=== PATIENT | female | born 1990 | race African-American/Black ===

== ENCOUNTER 2016-05-21 02:12 | Inpatient (IN) | payer SELFPAY ==
[2016-05-21] MEDS ORDERED: PANTOPRAZOLE SODIUM 40 MG VIAL IV ONE (02:50)
[2016-05-21] MEDS ORDERED: NORMAL SALINE 1000 ML 1,000 ML IV ONE ×3 (02:50→10:30)
--- NOTE | 2016-05-21 02:52 | ER Document Report ---
ED General - General Mode of Arrival: Medic Information source: Emergency Med Personnel TRAVEL OUTSIDE OF THE [place] IN LAST 30 DAYS: No - HPI Patient complains to provider of: Altered Mental Status Onset: Just prior to arrival Associated symptoms: Other - see above <YOLANDA RIZVI - Last Filed: 05/21/16 03:39> <SUNITAARUN VIOLETA - Last Filed: 05/21/16 05:36> - General Chief Complaint: Altered Mental Status Stated Complaint: ALTERED MENTAL STATUS Notes: 26 year old female presents to the ED via EMS in an altered mental status just prior to arrival. EMS reports that the patient's family said that the patient was in an altered mental status yesterday and locked herself in her room yesterday. Family also reports that the patient has had episodes of urinary and fecal incontinence. EMS states that the patient was found initially unresponsive , but responded to a hard sternal rub. Patient denies drinking alcohol tonight. (YOLANDA RIZVI) - Related Data Allergies/Adverse Reactions: lisinopril [Lisinopril] Adverse Reaction (Severe, Verified 04/20/16 09:28) hypotension (5 mg dose) Past Medical History - General Information source: [facility] Records - Social History Smoking Status: Unknown if Ever Smoked Family History: Reviewed & Not Pertinent, Hyperlipidemia, Hypertension - Past Medical History Cardiac Medical History: Reports: Hx Hypertension Endocrine Medical History: Reports: Hx Diabetes Mellitus Type 1 - hx of DKA GI Medical History: Reports: Hx Gastroesophageal Reflux Disease Psychiatric Medical History: Reports: Hx Bipolar Disorder, Hx Depression Past Surgical History: Reports: Hx Bowel Surgery - Patient states for holding her stomach - Immunizations Immunizations up to date: No Hx Diphtheria, Pertussis, Tetanus Vaccination: Yes Hx Pneumococcal Vaccination: 05/09/12 <YOLANDA RIZVI - Last Filed: 05/21/16 03:39> Review of Systems - Review of Systems -: Yes ROS unobtainable due to patient's medical condition Constitutional: No symptoms reported EENT: No symptoms reported Cardiovascular: No symptoms reported Respiratory: No symptoms reported Gastrointestinal: See HPI, Fecal incontinence Genitourinary: See HPI, Incontinence Female Genitourinary: No symptoms reported Musculoskeletal: No symptoms reported Skin: No symptoms reported Hematologic/Lymphatic: No symptoms reported Neurological/Psychological: See HPI, Other - altered mental status <YOLANDA RIZVI - Last Filed: 05/21/16 03:39> <ARUN DORSEY - Last Filed: 05/21/16 05:36> - Review of Systems Notes: A comprehensive ROS is unobtainable secondary to the patient's status. (RIZVI YOLANDA) Physical Exam - Vital signs Interpretation: Tachycardic - General General appearance: Alert - but uncooperative, Other - actively vomiting In distress: None - HEENT Head: Normocephalic, Atraumatic Eyes: Normal Extraocular movements intact: Yes Pupils: PERRL Mucous membranes: Dry - Respiratory Respiratory status: No respiratory distress Breath sounds: Normal - Cardiovascular Rhythm: Regular, Tachycardia Heart sounds: Normal auscultation - Abdominal Inspection: Normal - Back Back: Normal - Extremities General upper extremity: Normal inspection, Normal ROM General lower extremity: Normal inspection, Normal ROM, Other - Patient is wearing a depend. - Neurological Neuro grossly intact: Yes Traver Coma Scale Eye Opening: Spontaneous Dona Coma Scale Verbal: Oriented Dona Coma Scale Motor: Localizes to Pain Traver Coma Scale Total: 14 - Psychological Associated symptoms: Normal affect, Normal mood - Skin Skin Temperature: Warm Skin Moisture: Dry Skin Color: Normal <YOLANDA RIZVI - Last Filed: 05/21/16 03:39> Course - Laboratory Result Diagrams: 05/21/16 02:58 05/21/16 02:58 <YOLANDA RIZVI - Last Filed: 05/21/16 03:39> - Laboratory Result Diagrams: 05/21/16 02:58 05/21/16 02:58 <ARUN DORSEY - Last Filed: 05/21/16 05:36> - Re-evaluation Re-evalutation: 05/21/16 05:22 Patient is a 26-year-old female who comes in with vomiting. Patient has coffee- ground emesis. Hemoglobin is stable. Patient was initially somewhat tachycardic. There is resolving with fluids. Patient has an acute renal insufficiency today. Potassium is normal. Patient is positive for ketones although this is likely dehydration. Patient's initial glucose was 98. Repeat is 2:30. Patient will be given a dose of insulin. Patient will need to be admitted for her coffee-ground emesis and acute renal insufficiency today for fluid hydration. Patient also has what appears to be a UTI again. Patient was recently treated for Escherichia coli UTI. Will be started on Rocephin. Blood and urine cultures have been sent. Strongly recommend port placement on this patient as she is a very difficult stick. (ARUN DORSEY) - Laboratory Laboratory results interpreted by me: 05/21/16 05/21/16 05/21/16 02:58 02:58 02:58 WBC 15.0 H MCH 26.7 L RDW 15.5 H Seg Neutrophils % 86.2 H Lymphocytes % 11.2 L Monocytes % 2.1 L Absolute Neutrophils 12.9 H Sodium 148.7 H Chloride 96 L Anion Gap 30 H BUN 47 H Creatinine 2.81 H Est GFR ( Amer) 25 L Est GFR (Non-Af Amer) 21 L Glucose 143 H POC Glucose Lactic Acid 2.2 H Calcium 10.9 H AST 54 H Alkaline Phosphatase 197 H Total Protein 11.0 H Albumin 5.2 H Urine Protein Urine Glucose (UA) Urine Ketones Urine Blood Ur Leukocyte Esterase 05/21/16 05/21/16 03:30 04:12 WBC MCH RDW Seg Neutrophils % Lymphocytes % Monocytes % Absolute Neutrophils Sodium Chloride Anion Gap BUN Creatinine Est GFR ( Amer) Est GFR (Non-Af Amer) Glucose POC Glucose 230 H Lactic Acid Calcium AST Alkaline Phosphatase Total Protein Albumin Urine Protein 30 H Urine Glucose (UA) >=500 H Urine Ketones 80 H Urine Blood SMALL H Ur Leukocyte Esterase SMALL H (ARUN DORSEY) Discharge <YOLANDA RIZVI - Last Filed: 05/21/16 03:39> - Discharge Admitting Provider: Hospitalist Unit Admitted: IMCU <ARUN DORSEY - Last Filed: 05/21/16 05:36> - Discharge Clinical Impression: Coffee ground emesis, Dehydration, Polysubstance abuse UTI (urinary tract infection) Qualifiers: Urinary tract infection type: site unspecified Hematuria presence: without hematuria Qualified Code(s): N39.0 - Urinary tract infection, site not specified Acute renal failure Qualifiers: Acute renal failure type: unspecified Qualified Code(s): N17.9 - Acute kidney failure, unspecified Condition: Stable Disposition: ADMITTED INPATIENT Scribe Attestation: 05/21/16 05:36 I personally performed the services described in the documentation, reviewed and edited the documentation which was dictated to the scribe in my presence, and it accurately records my words and actions. (ARUN DORSEY
[2016-05-21] MEDS ORDERED: ONDANSETRON HCL INJ/PF 4 MG/2 ML SDV IV ONE (03:08)
[2016-05-21 03:28] LABS: ABSOLUTE BASOPHILS # (AUTO) 0.1 10^3/uL (0.0-0.2); ABSOLUTE LYMPHOCYTES (AUTO) 1.7 10^3/uL (0.5-4.7); ABSOLUTE MONOCYTES (AUTO) 0.3 10^3/uL (0.1-1.4); ABSOLUTE NEUT (AUTO) 12.9 10^3/uL (1.7-8.2); BASOPHILS % (AUTO) 0.4 % (0-2); EOSINOPHILS % (AUTO) 0.1 % (0-6); HEMATOCRIT 42.8 % (36.0-47.0); HEMOGLOBIN 13.8 g/dL (12.0-15.5); HGB HCT DIFFERENCE -1.4; LYMPHOCYTES % (AUTO) 11.2 % (13-45); MEAN CORPUSCULAR HEMOGLOBIN 26.7 pg (27.0-33.4); MEAN CORPUSCULAR HGB CONC 32.2 g/dL (32.0-36.0); MEAN CORPUSCULAR VOLUME 83 fl (80-97); MONOCYTES % (AUTO) 2.1 % (3-13); RED BLOOD COUNT 5.16 10^6/uL (3.72-5.28); RED CELL DISTRIBUTION WIDTH 15.5 % (11.5-14.0); SEGMENTED NEUTROPHILS % (AUTO) 86.2 % (42-78)
[2016-05-21 03:45] LABS: ALANINE AMINOTRANSFERASE 18 U/L (9-52); ALBUMIN 5.2 g/dL (3.5-5.0); ALKALINE PHOSPHATASE 197 U/L (38-126); ASPARTATE AMINO TRANSFERASE 54 U/L (14-36); BLOOD UREA NITROGEN 47 mg/dL (7-20); CALCIUM 10.9 mg/dL (8.4-10.2); CARBON DIOXIDE 23 mmol/L (22-30); CHLORIDE 96 mmol/L (98-107); CREATININE RESULT 2.81 mg/dL (0.52-1.25); GLUCOSE 143 mg/dL (75-110); POTASSIUM 4.9 mmol/L (3.6-5.0); SODIUM 148.7 mmol/L (137-145)
[2016-05-21 04:09] LABS: ANION GAP 30 (5-19)
[2016-05-21 04:22] LABS: VENOUS BLOOD BASE EXCESS -0.5 mmol/L; VENOUS BLOOD HCO3 24.7 mmol/L (20-32); VENOUS BLOOD PCO2 42.7 mmHg (35-63); VENOUS BLOOD PH 7.38 (7.30-7.42)
[2016-05-21 04:50] LABS: APPEARANCE,URINE SLIGHTLY-CLOUDY; BILIRUBIN,URINE NEGATIVE (NEGATIVE); GLUCOSE, URINE >=500 mg/dL (NEGATIVE); KETONES,URINE 80 mg/dL (NEGATIVE); LEUKOCYTE ESTERASE,URINE SMALL (NEGATIVE); NITRITE,URINE NEGATIVE (NEGATIVE); PROTEIN,URINE 30 mg/dL (NEGATIVE); URINE SPECIFIC GRAVITY 1.013; UROBILINOGEN,URINE NEGATIVE mg/dL (<2.0)
[2016-05-21 05:03] LABS: URINE BARBITURATES SCREEN NEGATIVE; URINE METHADONE SCREEN NEGATIVE; URINE PHENCYCLIDINE SCREEN NEGATIVE
[2016-05-21] MEDS ORDERED: INSULIN REG, HUMAN 100 UNIT/ML 3 ML VIAL (PYX) IV ONE ×2 (05:21→12:15)
[2016-05-21] MEDS ORDERED: CEFTRIAXONE 1 GM/D5W RTU 50 ML IV ONE (05:22)
[2016-05-21] MEDS ORDERED: INSULIN LISPRO 100 UNIT/ML 3 ML VIAL SUBCUT PRN (06:58)
[2016-05-21] MEDS ORDERED: DEXTROSE 50%-WATER 25 GM/50 ML DISP.SYRIN IV PRN ×4 (06:58→09:50)
[2016-05-21] MEDS ORDERED: GLUCAGON,HUMAN RECOMB 1 MG INJ IM PRN ×2 (06:58→09:50)
[2016-05-21] MEDS ORDERED: DEXTROSE 40% GEL 15 GM TUBE PO PRN ×4 (06:58→09:50)
[2016-05-21] MEDS ORDERED: 1/2 NORMAL SALINE 1,000 ML IV PRN (06:59)
[2016-05-21 07:10] LABS: PROTHROMBIN TIME 12.8 SEC (11.4-15.4)
[2016-05-21] MEDS ORDERED: ACETAMINOPHEN 650 MG SUPP.RECT PR PRN (07:35)
[2016-05-21 07:38] LABS: BLOOD UREA NITROGEN 48 mg/dL (7-20); CARBON DIOXIDE 18 mmol/L (22-30); CHLORIDE 93 mmol/L (98-107); CREATININE RESULT 3.12 mg/dL (0.52-1.25); GLUCOSE 393 mg/dL (75-110); SODIUM 147.5 mmol/L (137-145)
[2016-05-21 07:41] LABS: ANION GAP 37 (5-19)
[2016-05-21] MEDS ORDERED: NORMAL SALINE 100 ML with INSULIN REGULAR, HUMAN 100 UNIT IV PRN ×2 (09:50)
--- NOTE | 2016-05-21 10:02 | PDOC H&P ---
History of Present Illness Admission Date/PCP: 05/21/16 05:54 Patient complains of: ams History of Present Illness: JACKIE GARCIA is a 26 year old female, well known to the hospitalist service for multiple admissions for diabetic ketoacidosis, typically due to noncompliance. Positive cocaine drug screen on multiple occasions. Transported to the emergency room via EMS for evaluation of above complaint. Patient has been discussed with emergency room physician who evaluated the patient. Patient only mumbles incoherently, does not interact with ER staff or examiner, and is able to provide no history whatsoever in terms of acute or chronic events, review of systems, personal habits, family history, etc. No friends or family are present. Old inpatient records are reviewed.. Per emergency room physician report, EMS stated family said the patient had exhibited altered mental status approximately 24 hours ago and had locked her self in her room at that time. Has been having episodes of urinary and fecal incontinence lately. EMS reported patient was initially found unresponsive, but did respond to hard sternal rub. Patient denied drinking alcohol the night of admission to the emergency room physician. No further information available this point in time. Laboratory results are listed in [email or web address] and are reviewed. X-ray summary results are listed below, with full report(s) reviewed. . EKG reviewed . Social history/personal habits: Per old records, single, no children. Unemployed. Rare alcohol use. Occasional tobacco use. Multiple drug screens positive for cocaine. Allergies/adverse reactions are listed in [email or web address] and are reviewed. Home medications Home medications initially autopopulated into [employer] may not accurately reflect patient's true medications, dosages, and/or frequencies. Order has been entered for staff to contact family, outpatient physician, and/ or pharmacy to more accurately determine medications, dosages, and frequencies and to contact physician when that has been accomplished. REVIEW OF SYSTEMS: See history and present illness. No further information available this point in time. PHYSICAL EXAMINATION: 5 feet 4 inches tall. 56.7 kg. BMI 21.5 kg/m. Pulse 120 and regular. Blood pressure 138/85. Respirations are 22 and unlabored. 99% saturation on room air. Temperature 99.4. Thin otherwise well-developed though somewhat disheveled, chronically ill- appearing -[place] female who appears a bit older than her stated age. Looking about the room slightly, but basically does not interact with ER staff or examiner. Maintaining airway well. Occasional moaning. Skin is warm and dry. No grossly obvious evidence of rash in areas of skin examined. No subcutaneous nodules palpated. ENT: Hearing can't be evaluated adequately due to her current status. No Naranjo sign. Palpation of cranium fails to reveal any obvious evidence of injury or instability. Eyes: No scleral icterus. Pupils equal and reactive to light at 4 mm. [place] conjunctivae. No raccoon eyes. Neck is nontender to palpation. Midline trachea. No palpable thyroid nodule mass enlargement or tenderness. Lymphatic: No palpable cervical or clavicular nodes. Neck and lymphatic exams limited by patient body habitus. Psychiatric: Can't be adequately evaluated due to her current status. Lungs: Auscultation reveals clear and equal breath sounds bilaterally. No use of accessory respiratory muscles. Cardiovascular: Heart regular rate and rhythm, without gallop murmur or rub. No carotid or abdominal aortic bruits. No ankle or pedal edema. Faintly palpable dorsalis pedis pulses. Abdomen: soft, slightly, distended nontender with positive bowel sounds. Unable to adequately evaluate abdomen for masses or organomegaly due to distention. Extremities: Hands and Feet are warm and dry. No calf tenderness to compression. No grossly obvious visual evidence of calf swelling. Gentle manipulation of upper and lower extremities fails to reveal any obvious evidence of injury or instability to involved major joints. Neurologic: Moves all 4 extremities grossly normally. No rigidity. Patellar reflexes absent. Absent Babinski. Light touch can't be adequately evaluated due to her current status.. Past Medical History Cardiac Medical History: Reports: Hypertension Endocrine Medical History: Reports: Diabetes Mellitus Type 1 - hx of DKA GI Medical History: Reports: Gastroesophageal Reflux Disease Psychiatric Medical History: Reports: Bipolar Disorder, Depression Hematology: Reports: Anemia - Of chronic disease Past Surgical History Past Surgical History: Reports: None Social History Information Source: Emergency Med Personnel, [facility] Records Smoking Status: Unknown if Ever Smoked Frequency of Alcohol Use: None Hx Recreational Drug Use: Yes Drugs: Cocaine Hx Prescription Drug Abuse: Yes - Advance Directive Resuscitation Status: Full Code Surrogate healthcare decision maker:: In the past has been her mother Family History Family History: Reviewed & Not Pertinent, Hyperlipidemia, Hypertension Parental Family History Reviewed: Yes - per old records Children Family History Reviewed: NA Sibling(s) Family History Reviewed.: Yes Medication/Allergy Home Medications: No Home Medications 05/21/16 Allergies/Adverse Reactions: lisinopril [Lisinopril] Adverse Reaction (Severe, Verified 04/20/16 09:28) hypotension (5 mg dose) Physical Exam Vital Signs: Temp Pulse Resp BP Pulse Ox 99.7 F 10 L 120/77 99 05/21/16 03:15 05/21/16 05:01 05/21/16 05:01 05/21/16 05:01 Results Impressions: Chest X-Ray 05/21/16 00:00 IMPRESSION: NO ACUTE RADIOGRAPHIC FINDING IN THE CHEST. Assessment & Plan - Diagnosis (1) ARF (acute renal failure) Qualifiers: Acute renal failure type: unspecified Qualified Code(s): N17.9 - Acute kidney failure, unspecified Is this a current diagnosis for this admission?: YesPlan: Likely prerenal in origin. IV fluids. Renal ultrasound. Follow-up chemistry. (2) Acute encephalopathy Is this a current diagnosis for this admission?: YesPlan: Likely multifactorial, including cocaine use, along with an element of dehydration, combined with suspected urinary tract infection. Hopefully will clear with time and treatment. Knee high SCDs for DVT prophylaxis, along with subcutaneous heparin. Time spent in evaluation and management of patient: 55 minutes. (3) Coffee ground emesis Is this a current diagnosis for this admission?: YesPlan: IV Protonix. Follow-up CBC with differential. (4) Dehydration with hypernatremia Is this a current diagnosis for this admission?: YesPlan: IV fluids. Follow-up chemistry. (5) Hyperproteinemia Is this a current diagnosis for this admission?: YesPlan: Follow-up chemistry. (6) UTI (urinary tract infection) Qualifiers: Urinary tract infection type: site unspecified Hematuria presence: with hematuria Qualified Code(s): N39.0 - Urinary tract infection, site not specified Is this a current diagnosis for this admission?: YesPlan: 05/02/2016 urine culture reviewed. We'll continue Rocephin. (7) Cocaine abuse Is this a current diagnosis for this admission?: Yes (8) DVT prophylaxis Is this a current diagnosis for this admission?: Yes - Inpatient Certification Based on my medical assessment, after consideration of the patient's comorbidities, presenting symptoms, or acuity I expect that the services needed warrant INPATIENT care.: Yes I certify that my determination is in accordance with my understanding of Medicare's requirements for reasonable and necessary INPATIENT services [42 CFR 412.3e].: Yes Medical Necessity: Need Close Monitoring Due to Risk of Patient Decompensation, Need For IV Fluids, Need For Continuous Telemetry Monitoring, Need for IV Antibiotics, Risk of Complication if Not Cared For in Hospital, Risk of Diagnosis Which Will Require Inpatient Eval/Care/Monitoring Post Hospital Care: D/C or Transfer Summary
[2016-05-21] MEDS ORDERED: LIDOCAINE 2% INJ-PF (100 MG/5 ML) SYRINGE ONE (10:17)
[2016-05-21] MEDS ORDERED: LIDOCAINE 2% INJ (20 MG/ML) 20 ML MDV INJ ONE (10:17)
[2016-05-21] MEDS: PANTOPRAZOLE SODIUM 40 MG VIAL IV SCH ×2 (11:43→22:04)
[2016-05-21] MEDS: HEPARIN SOD (PORCINE) 5,000 UNIT/ML 1 ML SYRINGE SUBCUT SCH ×2 (11:44→22:19)
[2016-05-21] MEDS: NORMAL SALINE 1000 ML 1,000 ML IV PRN ×2 (11:47→16:01)
[2016-05-21] MEDS ORDERED: INSULIN REG, HUMAN 100 UNIT/ML 3 ML VIAL (PYX) ONE (12:13)
--- NOTE | 2016-05-21 12:58 | OPERATIVE REPORT E ---
Operative Report NAME: JACKIE GARCIA : 1990 AGE: 26Y DATE OF SURGERY: 05/21/2016 ROOM: ED07 PREOPERATIVE DIAGNOSIS: Need for central venous access to treat diabetic ketoacidosis. POSTOPERATIVE DIAGNOSIS: Need for central venous access to treat diabetic ketoacidosis. OPERATION: Insertion of right internal jugular vein triple lumen catheter. SURGEON: DELPHINE ORDONEZ M.D. ANESTHESIA: Local. REPLACEMENT: None. COMPLICATIONS: None. CONDITION: Stable. PROCEDURE: Patient comes in with DKA. Patient is a frequent visitor to this Emergency Room for treatment for her DKA. Central venous access has been requested. The patient was put in the Trendelenburg position, and the right neck was prepped and draped in the usual sterile manner. A time-out was achieved, and then the right neck was prepped and draped in the usual sterile manner. The patient was on cardiac monitoring. Local anesthesia was injected in the middle of the right anterior triangle of the neck and advanced toward the nipple in order to anesthetize the skin and underlying subcutaneous tissue. Venous blood was noted in the syringe, the syringe was disconnected, and the needle was left in place. The access needle was then passed through the syringe, and the right internal jugular vein was accessed percutaneously. With the flash of venous blood in the syringe, the syringe was removed, and the guidewire was advanced through the needle into the superior vena cava. Patient was noted to have a small amount of ectopy. The wire was brought back, and the ectopy disappeared. The needle was then removed then a vein dilator was placed over the guidewire. After removal of the vein dilator, and using the sterile Seldinger technique, the triple lumen catheter was advanced over the guidewire, as the guidewire was removed, and the catheter was advanced to the 20-cm sandra. There was good antegrade and retrograde flow through each lumen, and the catheter was secured into position. The BIOPATCH and Tegaderm was attached, and portable chest x-ray has been requested. Good breath sounds were noted in the right hemithorax. The patient tolerated the procedure well and will be admitted to the floor at some time today. DICTATING PHYSICIAN: DELPHINE ORDONEZ M.D. [id number] PHY#: [id number] ID: [id number] JOB#: [id number] ACCT: [id number] cc:DELPHINE ORDONEZ M.D. >
[2016-05-21 14:10] LABS: BLOOD UREA NITROGEN 45 mg/dL (7-20); CALCIUM 8.3 mg/dL (8.4-10.2); CARBON DIOXIDE 12 mmol/L (22-30); CREATININE RESULT 2.56 mg/dL (0.52-1.25)
[2016-05-21 14:22] LABS: CHLORIDE 102 mmol/L (98-107); SODIUM 145.2 mmol/L (137-145)
[2016-05-21 14:27] LABS: ANION GAP 31 (5-19)
[2016-05-21 14:30] LABS: GLUCOSE 411 mg/dL (75-110)
--- NOTE | 2016-05-21 14:57 | EKG REPORT ---
SEVERITY:- OTHERWISE NORMAL ECG - SINUS TACHYCARDIA : Confirmed by: Gissel Dinero 21-May-2016 14:56:49
--- NOTE | 2016-05-21 17:40 | PDOC PROGRESS REPORT ---
Subjective Progress Note for:: 05/21/16 Subjective:: The patient is currently lying in bed. Patient is awake and actually push me away from her during assessment. The patient does seem combative. No reported episodes of vomiting nor diarrhea. The patient has remained afebrile. Blood pressures have improved. The patient voices no other concerns at this time. Currently on insulin drip. Physical Exam Vital Signs: Temp Pulse Resp BP Pulse Ox 98.9 F 116 H 16 149/91 H 100 05/21/16 15:07 05/21/16 15:07 05/21/16 15:07 05/21/16 15:07 05/21/16 15:07 Intake & Output 05/19/16 05/20/16 05/21/16 23:59 23:59 23:59 Output Total 1100 Balance -1100 General appearance: PRESENT: no acute distress, disheveled, thin, well-nourished Head exam: PRESENT: atraumatic, normocephalic Eye exam: PRESENT: conjunctiva pink, EOMI, PERRLA. ABSENT: scleral icterus Ear exam: PRESENT: normal external ear exam Mouth exam: PRESENT: moist, tongue midline Neck exam: ABSENT: carotid bruit, JVD, lymphadenopathy, thyromegaly Respiratory exam: PRESENT: clear to auscultation [place]. ABSENT: rales, rhonchi, wheezes Cardiovascular exam: PRESENT: RRR. ABSENT: diastolic murmur, rubs, systolic murmur Pulses: PRESENT: normal dorsalis pedis pul Vascular exam: PRESENT: normal capillary refill GI/Abdominal exam: PRESENT: normal bowel sounds, soft. ABSENT: distended, guarding, mass, organolmegaly, rebound, tenderness Rectal exam: PRESENT: deferred Extremities exam: PRESENT: full ROM. ABSENT: calf tenderness, clubbing, pedal edema Neurological exam: PRESENT: alert, altered, awake, CN II-XII grossly intact. ABSENT: motor sensory deficit Psychiatric exam: PRESENT: agitated, unusual affect. ABSENT: homicidal ideation , suicidal ideation Skin exam: PRESENT: dry, intact, warm. ABSENT: cyanosis, rash Results Laboratory Results: 05/21/16 13:38 05/21/16 05/21/16 05/21/16 08:50 08:50 13:38 Sodium 145.2 H Potassium 4.0 Chloride 102 Carbon Dioxide 12 L Anion Gap 31 H BUN 45 H Creatinine 2.56 H Est GFR ( Amer) 28 L Est GFR (Non-Af Amer) 23 L Glucose 411 H* Lactic Acid 2.0 Calcium 8.3 L Ammonia < 8.7 L Impressions: Renal Ultrasound 05/21/16 00:00 IMPRESSION: No hydronephrosis. Normal size kidneys bilaterally. Dependent debris in the bladder, correlate clinically for cystitis or hematuria Chest X-Ray 05/21/16 11:23 IMPRESSION: Right central line tip in the right atrium. No pneumothorax. Assessment & Plan - Diagnosis (1) Diabetic ketoacidosis Qualifiers: Diabetes mellitus type: type 1 Diabetes mellitus complication detail: with coma Qualified Code(s): E10.11 - Type 1 diabetes mellitus with ketoacidosis with coma Is this a current diagnosis for this admission?: YesPlan: Diabetic ketoacidosis protocol was utilized including an insulin drip, every hourly blood glucose checks and aggressive hydration. Slowly improving will address IV fluids once the patient's glucoses less than 250. 04/20/16 05/21/16 05/21/16 08:03 03:30 06:44 Potassium 5.7 H Carbon Dioxide Anion Gap 37 H POC Glucose Urine Ketones 80 H 05/21/16 05/21/16 11:26 13:38 Potassium Carbon Dioxide 12 L Anion Gap POC Glucose 543 H* Urine Ketones (2) ARF (acute renal failure) Qualifiers: Acute renal failure type: unspecified Qualified Code(s): N17.9 - Acute kidney failure, unspecified Is this a current diagnosis for this admission?: YesPlan: Continue to aggressively hydrate (3) Acute encephalopathy Is this a current diagnosis for this admission?: YesPlan: Is likely secondary to #1. The patient has presented like this before when in DKA. (4) Dehydration with hypernatremia Is this a current diagnosis for this admission?: YesPlan: Hydration (5) Hyperproteinemia Is this a current diagnosis for this admission?: Yes (6) Gastroparesis Is this a current diagnosis for this admission?: Yes (7) Polysubstance abuse Is this a current diagnosis for this admission?: Yes (8) UTI (urinary tract infection) Qualifiers: Urinary tract infection type: site unspecified Hematuria presence: with hematuria Qualified Code(s): N39.0 - Urinary tract infection, site not specified Is this a current diagnosis for this admission?: YesPlan: Continue antibiotic coverage 05/21/16 03:30 Urine Culture - Pending Catheterized Urine (9) SIRS (systemic inflammatory response syndrome) Is this a current diagnosis for this admission?: Yes (10) Cocaine abuse Is this a current diagnosis for this admission?: Yes (11) Acute on chronic anemia Is this a current diagnosis for this admission?: No (12) Hypertension Qualifiers: Hypertension type: other secondary hypertension Qualified Code(s): I15.8 - Other secondary hypertension (13) Iron deficiency anemia due to dietary causes Is this a current diagnosis for this admission?: Yes (14) Noncompliance Is this a current diagnosis for this admission?: Yes (15) DVT prophylaxis Is this a current diagnosis for this admission?: Yes - Time Time Spent with patient: on this visit including assessment, plan, physical examination, family meeting, and specialty collaboration, and patient education is 60 minutes. Time Spent with patient: 35 or more minutes Medications reviewed and adjusted accordingly: Yes Anticipated discharge: Home Within: within 48 hours Disposition: The patient is a full code. Pending patient's symptomatology and diagnostic findings will reevaluate in the a.m.
[2016-05-21 18:30] LABS: BLOOD UREA NITROGEN 41 mg/dL (7-20); CALCIUM 8.2 mg/dL (8.4-10.2); CHLORIDE 105 mmol/L (98-107); CREATININE RESULT 1.97 mg/dL (0.52-1.25); GLUCOSE 177 mg/dL (75-110); POTASSIUM 4.1 mmol/L (3.6-5.0); SODIUM 145.3 mmol/L (137-145)
[2016-05-21 18:54] LABS: ANION GAP 19 (5-19)
[2016-05-21 19:02] LABS: CARBON DIOXIDE 21 mmol/L (22-30)
[2016-05-21] MEDS: DEXTROSE 5%-1/2 NORMAL SALINE 1,000 ML IV PRN ×2 (20:31→23:30)
[2016-05-21 23:02] LABS: ANION GAP 12 (5-19); BLOOD UREA NITROGEN 33 mg/dL (7-20); CALCIUM 7.6 mg/dL (8.4-10.2); CARBON DIOXIDE 26 mmol/L (22-30); CHLORIDE 107 mmol/L (98-107); CREATININE RESULT 1.54 mg/dL (0.52-1.25); GLUCOSE 79 mg/dL (75-110); POTASSIUM 3.4 mmol/L (3.6-5.0); SODIUM 145.3 mmol/L (137-145)
[2016-05-22] MEDS ORDERED: POTASSI CL 20 MEQ/50 ML RIDER 50 ML IV ONE (00:35)
[2016-05-22 00:41] LABS: ADD ON TESTING BLD IN LAB ACKNOWLEDGE
[2016-05-22 00:54] LABS: MAGNESIUM 1.7 mg/dL (1.6-2.3)
[2016-05-22] MEDS: POTASSI CL 20 MEQ/D5-1/2NS 1L 1,000 ML IV PRN ×3 (01:20→09:02)
[2016-05-22 02:58] LABS: ANION GAP 14 (5-19); BLOOD UREA NITROGEN 26 mg/dL (7-20); CALCIUM 7.5 mg/dL (8.4-10.2); CARBON DIOXIDE 23 mmol/L (22-30); CHLORIDE 105 mmol/L (98-107); CREATININE RESULT 1.29 mg/dL (0.52-1.25); GLUCOSE 236 mg/dL (75-110); POTASSIUM 3.9 mmol/L (3.6-5.0); SODIUM 142.1 mmol/L (137-145)
[2016-05-22 07:14] LABS: ALANINE AMINOTRANSFERASE 18 U/L (9-52); ALBUMIN 3.2 g/dL (3.5-5.0); ALKALINE PHOSPHATASE 101 U/L (38-126); ANION GAP 9 (5-19); ASPARTATE AMINO TRANSFERASE 17 U/L (14-36); BILIRUBIN,TOTAL 0.4 mg/dL (0.2-1.3); BLOOD UREA NITROGEN 21 mg/dL (7-20); CALCIUM 7.7 mg/dL (8.4-10.2); CARBON DIOXIDE 25 mmol/L (22-30); CHLORIDE 107 mmol/L (98-107); CREATININE RESULT 1.06 mg/dL (0.52-1.25); GLUCOSE 129 mg/dL (75-110); POTASSIUM 3.7 mmol/L (3.6-5.0); SODIUM 141.3 mmol/L (137-145); TOTAL PROTEIN 6.3 g/dL (6.3-8.2)
[2016-05-22 07:15] LABS: ABSOLUTE LYMPHOCYTES (AUTO) 1.6 10^3/uL (0.5-4.7); ABSOLUTE MONOCYTES (AUTO) 0.9 10^3/uL (0.1-1.4); ABSOLUTE NEUT (AUTO) 9.9 10^3/uL (1.7-8.2); BASOPHILS % (AUTO) 0.1 % (0-2); EOSINOPHILS % (AUTO) 0.1 % (0-6); HEMATOCRIT 25.6 % (36.0-47.0); HGB HCT DIFFERENCE -0.4; LYMPHOCYTES % (AUTO) 12.6 % (13-45); MEAN CORPUSCULAR HEMOGLOBIN 27.2 pg (27.0-33.4); MEAN CORPUSCULAR HGB CONC 32.6 g/dL (32.0-36.0); MEAN CORPUSCULAR VOLUME 83 fl (80-97); MONOCYTES % (AUTO) 7.4 % (3-13); RED BLOOD COUNT 3.07 10^6/uL (3.72-5.28); RED CELL DISTRIBUTION WIDTH 15.6 % (11.5-14.0); SEGMENTED NEUTROPHILS % (AUTO) 79.8 % (42-78); WHITE BLOOD COUNT 12.4 10^3/uL (4.0-10.5)
[2016-05-22 07:22] LABS: HEMOGLOBIN 8.4 g/dL (12.0-15.5)
[2016-05-22] MEDS: CEFTRIAXONE 1 GM/D5W RTU 50 ML IV SCH (08:53)
[2016-05-22] MEDS: PANTOPRAZOLE SODIUM 40 MG VIAL IV SCH (08:53)
[2016-05-22] MEDS: HEPARIN SOD (PORCINE) 5,000 UNIT/ML 1 ML SYRINGE SUBCUT SCH ×2 (08:54→21:56)
[2016-05-22] MEDS ORDERED: VANCOMYCIN HCL 0 MG in DEXTROSE 5%-WATER 250 ML IV NR (09:30)
[2016-05-22] MEDS ORDERED: GLUCAGON,HUMAN RECOMB 1 MG INJ IM PRN (09:33)
[2016-05-22] MEDS ORDERED: DEXTROSE 50%-WATER 25 GM/50 ML DISP.SYRIN IV PRN ×2 (09:33)
[2016-05-22] MEDS ORDERED: DEXTROSE 40% GEL 15 GM TUBE PO PRN ×2 (09:33)
--- NOTE | 2016-05-22 09:41 | PDOC PROGRESS REPORT ---
Subjective Progress Note for:: 05/22/16 Subjective:: The patient is currently lying in bed. Patient is awake and actually push me away from her during assessment. The patient states her shoulder is hurting from the IV as well as her neck. The patient does seem easily agitated. No reported episodes of vomiting nor diarrhea. The patient has remained afebrile. Blood pressures have improved. The patient voices no other concerns at this time. Physical Exam Vital Signs: Temp Pulse Resp BP Pulse Ox 97.3 F 103 H 22 H 133/90 H 100 05/22/16 08:06 05/22/16 08:06 05/22/16 08:06 05/22/16 08:06 05/22/16 08:06 Intake & Output 05/20/16 05/21/16 05/22/16 23:59 23:59 23:59 Intake Total 1256 3500 Output Total 2600 1100 Balance -1344 2400 Weight 60.5 kg General appearance: PRESENT: no acute distress, disheveled, thin, well-nourished Head exam: PRESENT: atraumatic, normocephalic Eye exam: PRESENT: conjunctiva pink, EOMI, PERRLA. ABSENT: scleral icterus Ear exam: PRESENT: normal external ear exam Mouth exam: PRESENT: moist, tongue midline Neck exam: ABSENT: carotid bruit, JVD, lymphadenopathy, thyromegaly Respiratory exam: PRESENT: clear to auscultation [place]. ABSENT: rales, rhonchi, wheezes Cardiovascular exam: PRESENT: RRR. ABSENT: diastolic murmur, rubs, systolic murmur Pulses: PRESENT: normal dorsalis pedis pul Vascular exam: PRESENT: normal capillary refill GI/Abdominal exam: PRESENT: normal bowel sounds, soft. ABSENT: distended, guarding, mass, organolmegaly, rebound, tenderness Rectal exam: PRESENT: deferred Extremities exam: PRESENT: full ROM. ABSENT: calf tenderness, clubbing, pedal edema Neurological exam: PRESENT: alert, altered, awake, CN II-XII grossly intact. ABSENT: motor sensory deficit Psychiatric exam: PRESENT: agitated, unusual affect. ABSENT: homicidal ideation , suicidal ideation Skin exam: PRESENT: dry, intact, warm. ABSENT: cyanosis, rash Results Laboratory Results: 05/22/16 06:11 05/22/16 06:11 05/21/16 05/21/16 05/21/16 08:50 13:38 17:55 WBC RBC Hgb Hct MCV MCH MCHC RDW Plt Count Seg Neutrophils % Lymphocytes % Monocytes % Eosinophils % Basophils % Absolute Neutrophils Absolute Lymphocytes Absolute Monocytes Absolute Eosinophils Absolute Basophils Sodium 145.2 H 145.3 H Potassium 4.0 4.1 Chloride 102 105 Carbon Dioxide 12 L 21 L Anion Gap 31 H 19 BUN 45 H 41 H Creatinine 2.56 H 1.97 H Est GFR ( Amer) 28 L 38 L Est GFR (Non-Af Amer) 23 L 31 L Glucose 411 H* 177 H Lactic Acid 2.0 Calcium 8.3 L 8.2 L Magnesium Total Bilirubin AST ALT Alkaline Phosphatase Total Protein Albumin 05/21/16 05/21/16 05/22/16 22:00 22:00 02:25 WBC RBC Hgb Hct MCV MCH MCHC RDW Plt Count Seg Neutrophils % Lymphocytes % Monocytes % Eosinophils % Basophils % Absolute Neutrophils Absolute Lymphocytes Absolute Monocytes Absolute Eosinophils Absolute Basophils Sodium 145.3 H 142.1 Potassium 3.4 L 3.9 Chloride 107 105 Carbon Dioxide 26 23 Anion Gap 12 14 BUN 33 H 26 H Creatinine 1.54 H 1.29 H Est GFR ( Amer) 50 L > 60 Est GFR (Non-Af Amer) 41 L 51 L Glucose 79 236 H Lactic Acid Calcium 7.6 L 7.5 L Magnesium 1.7 Total Bilirubin AST ALT Alkaline Phosphatase Total Protein Albumin 05/22/16 05/22/16 06:11 06:11 WBC 12.4 H RBC 3.07 L Hgb 8.4 L D Hct 25.6 L MCV 83 MCH 27.2 MCHC 32.6 RDW 15.6 H Plt Count 240 Seg Neutrophils % 79.8 H Lymphocytes % 12.6 L Monocytes % 7.4 Eosinophils % 0.1 Basophils % 0.1 Absolute Neutrophils 9.9 H Absolute Lymphocytes 1.6 Absolute Monocytes 0.9 Absolute Eosinophils 0.0 Absolute Basophils 0.0 Sodium 141.3 Potassium 3.7 Chloride 107 Carbon Dioxide 25 Anion Gap 9 BUN 21 H Creatinine 1.06 Est GFR ( Amer) > 60 Est GFR (Non-Af Amer) > 60 Glucose 129 H Lactic Acid Calcium 7.7 L Magnesium Total Bilirubin 0.4 AST 17 ALT 18 Alkaline Phosphatase 101 Total Protein 6.3 Albumin 3.2 L Impressions: Renal Ultrasound 05/21/16 00:00 IMPRESSION: No hydronephrosis. Normal size kidneys bilaterally. Dependent debris in the bladder, correlate clinically for cystitis or hematuria Chest X-Ray 05/21/16 11:23 IMPRESSION: Right central line tip in the right atrium. No pneumothorax. Assessment & Plan - Diagnosis (1) Diabetic ketoacidosis Qualifiers: Diabetes mellitus type: type 1 Diabetes mellitus complication detail: with coma Qualified Code(s): E10.11 - Type 1 diabetes mellitus with ketoacidosis with coma Is this a current diagnosis for this admission?: YesPlan: Diabetic ketoacidosis protocol was utilized including an insulin drip, every hourly blood glucose checks and aggressive hydration. will transition to SQ Levamir and AC&HS coverage 04/20/16 05/21/16 05/21/16 08:03 03:30 06:44 Potassium 5.7 H Carbon Dioxide Anion Gap 37 H POC Glucose Urine Ketones 80 H 05/21/16 05/21/16 11:26 13:38 Potassium Carbon Dioxide 12 L Anion Gap POC Glucose 543 H* Urine Ketones (2) ARF (acute renal failure) Qualifiers: Acute renal failure type: unspecified Qualified Code(s): N17.9 - Acute kidney failure, unspecified Is this a current diagnosis for this admission?: YesPlan: Resolved (3) Acute encephalopathy Is this a current diagnosis for this admission?: YesPlan: Is likely secondary to #1. The patient has presented like this before when in DKA. Improved. (4) Dehydration with hypernatremia Is this a current diagnosis for this admission?: YesPlan: Hydration (5) Hyperproteinemia Is this a current diagnosis for this admission?: Yes (6) Gastroparesis Is this a current diagnosis for this admission?: Yes (7) Polysubstance abuse Is this a current diagnosis for this admission?: Yes (8) UTI (urinary tract infection) Qualifiers: Urinary tract infection type: site unspecified Hematuria presence: with hematuria Qualified Code(s): N39.0 - Urinary tract infection, site not specified Is this a current diagnosis for this admission?: YesPlan: Continue antibiotic coverage 05/21/16 03:30 Urine Culture - Pending Catheterized Urine (9) SIRS (systemic inflammatory response syndrome) Is this a current diagnosis for this admission?: YesPlan: It appears on set of blood cultures in positive. Will await urine culture and repeat blood cultures in the am. Add Vanc (10) Cocaine abuse Is this a current diagnosis for this admission?: Yes (11) Hypertension Qualifiers: Hypertension type: other secondary hypertension Qualified Code(s): I15.8 - Other secondary hypertension (12) Iron deficiency anemia due to dietary causes Is this a current diagnosis for this admission?: YesPlan: Will repeat CBC in am (13) Noncompliance Is this a current diagnosis for this admission?: Yes (14) DVT prophylaxis Is this a current diagnosis for this admission?: Yes - Time Time Spent with patient: 25-34 minutes Medications reviewed and adjusted accordingly: Yes Anticipated discharge: Home Within: within 48 hours
[2016-05-22] MEDS: TRAMADOL HCL 50 MG TABLET PO PRN (10:14)
[2016-05-22] MEDS: INSULIN DETEMIR 100 UNIT/ML 3 ML PEN SUBCUT SCH ×2 (11:08→21:57)
[2016-05-22] MEDS ORDERED: VANCOMYCIN HCL 750 MG in DEXTROSE 5%-WATER 250 ML IV ONE (11:15)
[2016-05-22] MEDS: INSULIN LISPRO 100 UNIT/ML 3 ML VIAL SUBCUT PRN (13:17)
[2016-05-22] MEDS: LANSOPRAZOLE 30 MG TAB.RAP.DR PO SCH (17:06)
[2016-05-22] MEDS: VANCOMYCIN HCL 750 MG in DEXTROSE 5%-WATER 250 ML IV SCH (21:56)
[2016-05-23] MEDS: TRAMADOL HCL 50 MG TABLET PO PRN ×2 (04:45→20:18)
[2016-05-23] MEDS: LANSOPRAZOLE 30 MG TAB.RAP.DR PO SCH ×2 (06:00→18:14)
[2016-05-23] MEDS: INSULIN LISPRO 100 UNIT/ML 3 ML VIAL SUBCUT PRN ×2 (07:58→12:31)
[2016-05-23] MEDS: HEPARIN SOD (PORCINE) 5,000 UNIT/ML 1 ML SYRINGE SUBCUT SCH ×2 (10:35→21:47)
[2016-05-23] MEDS: INSULIN DETEMIR 100 UNIT/ML 3 ML PEN SUBCUT SCH ×2 (10:35→21:47)
[2016-05-23] MEDS: VANCOMYCIN HCL 750 MG in DEXTROSE 5%-WATER 250 ML IV SCH (10:36)
[2016-05-23] MEDS: CEFTRIAXONE 1 GM/D5W RTU 50 ML IV SCH (10:36)
--- NOTE | 2016-05-23 14:39 | PDOC PROGRESS REPORT ---
Subjective Progress Note for:: 05/23/16 Subjective:: The patient is currently lying in bed. The patient is much more awake and alert than she was yesterday. The patient has agreed to go to drug rehabilitation. The patient denies any nausea, vomiting, diarrhea, shortness of breath, dizziness, chest pain, heart palpitations, fevers, or chills. The patient has remained afebrile. Blood pressures have been in a good range. The patient voices no other concerns at this time. Review of systems: The rest of the review of systems is negative. Physical Exam Vital Signs: Temp Pulse Resp BP Pulse Ox 98.2 F 92 16 147/101 H 100 05/23/16 07:34 05/23/16 07:34 05/23/16 07:34 05/23/16 07:34 05/23/16 07:34 Intake & Output 05/21/16 05/22/16 05/23/16 23:59 23:59 23:59 Intake Total 1256 4512 350 Output Total 2600 1550 1300 Balance -1344 2962 -950 Weight 60.5 kg 57.8 kg General appearance: PRESENT: no acute distress, cooperative, well-developed, well-nourished Head exam: PRESENT: atraumatic, normocephalic Eye exam: PRESENT: conjunctiva pink, EOMI, PERRLA. ABSENT: scleral icterus Ear exam: PRESENT: normal external ear exam Mouth exam: PRESENT: moist, tongue midline Neck exam: ABSENT: carotid bruit, JVD, lymphadenopathy, thyromegaly Respiratory exam: PRESENT: clear to auscultation [place], symmetrical, unlabored. ABSENT: rales, rhonchi, tachypnea, wheezes Cardiovascular exam: PRESENT: RRR. ABSENT: diastolic murmur, rubs, systolic murmur Pulses: PRESENT: normal dorsalis pedis pul Vascular exam: PRESENT: normal capillary refill GI/Abdominal exam: PRESENT: normal bowel sounds, soft. ABSENT: distended, guarding, mass, organolmegaly, rebound, tenderness Rectal exam: PRESENT: deferred Extremities exam: PRESENT: full ROM. ABSENT: calf tenderness, clubbing, pedal edema Neurological exam: PRESENT: alert, awake, oriented to person, oriented to place , oriented to time, oriented to situation, CN II-XII grossly intact. ABSENT: motor sensory deficit Psychiatric exam: PRESENT: appropriate affect, normal mood. ABSENT: homicidal ideation, suicidal ideation Skin exam: PRESENT: dry, intact, warm. ABSENT: cyanosis, rash Results Laboratory Results: 05/22/16 06:11 05/22/16 06:11 Impressions: Renal Ultrasound 05/21/16 00:00 IMPRESSION: No hydronephrosis. Normal size kidneys bilaterally. Dependent debris in the bladder, correlate clinically for cystitis or hematuria Chest X-Ray 05/21/16 11:23 IMPRESSION: Right central line tip in the right atrium. No pneumothorax. Assessment & Plan - Diagnosis (1) UTI (urinary tract infection) Qualifiers: Urinary tract infection type: site unspecified Hematuria presence: with hematuria Qualified Code(s): N39.0 - Urinary tract infection, site not specified Is this a current diagnosis for this admission?: YesPlan: Continue antibiotic coverage. It appears that the patient has had Escherichia coli in the past that is resistant to meri quinolones. Given the patient's recurrence of pyelonephritis and uncompleted treatment regimens in addition and noncompliance will continue IV Rocephin for now (2) Diabetic ketoacidosis Qualifiers: Diabetes mellitus type: type 1 Diabetes mellitus complication detail: with coma Qualified Code(s): E10.11 - Type 1 diabetes mellitus with ketoacidosis with coma Is this a current diagnosis for this admission?: YesPlan: Has done well with transition to Levamir and AC&HS coverage 04/20/16 05/21/16 05/21/16 08:03 03:30 06:44 Potassium 5.7 H Carbon Dioxide Anion Gap 37 H POC Glucose Urine Ketones 80 H 05/21/16 05/21/16 11:26 13:38 Potassium Carbon Dioxide 12 L Anion Gap POC Glucose 543 H* Urine Ketones (3) SIRS (systemic inflammatory response syndrome) Is this a current diagnosis for this admission?: YesPlan: It secondary to the above this is resolved (4) ARF (acute renal failure) Qualifiers: Acute renal failure type: unspecified Qualified Code(s): N17.9 - Acute kidney failure, unspecified Is this a current diagnosis for this admission?: YesPlan: Resolved (5) Acute encephalopathy Is this a current diagnosis for this admission?: YesPlan: Is likely secondary to #1. The patient has presented like this before when in DKA. Improved. (6) Dehydration with hypernatremia Is this a current diagnosis for this admission?: YesPlan: Hydration (7) Hyperproteinemia Is this a current diagnosis for this admission?: Yes (8) Gastroparesis Is this a current diagnosis for this admission?: Yes (9) Polysubstance abuse Is this a current diagnosis for this admission?: Yes (10) Cocaine abuse Is this a current diagnosis for this admission?: YesPlan: Edi Cullen, brand director had managed to arrange drug rehab for the patient; however, she was admitted before she could get there. She has agreed to go again. I am uncertain of the details but Subhash gave me the above contact information for him. (11) Hypertension Qualifiers: Hypertension type: other secondary hypertension Qualified Code(s): I15.8 - Other secondary hypertension (12) Iron deficiency anemia due to dietary causes Is this a current diagnosis for this admission?: YesPlan: Will repeat CBC in am (13) Noncompliance Is this a current diagnosis for this admission?: Yes (14) DVT prophylaxis Is this a current diagnosis for this admission?: Yes - Time Time Spent with patient: on this visit including assessment, plan, physical examination, and patient education is 25 minutes. Time Spent with patient: 25-34 minutes Medications reviewed and adjusted accordingly: Yes Anticipated discharge: Acute Rehab Within: when bed available Disposition: The patient is a full code. Pending patient's symptomatology and diagnostic findings will reevaluate in the a.m. the patient can be downgraded to a medical bed.
[2016-05-24] MEDS: LANSOPRAZOLE 30 MG TAB.RAP.DR PO SCH (05:25)
[2016-05-24 06:11] LABS: HEMATOCRIT 29.9 % (36.0-47.0); HEMOGLOBIN 9.6 g/dL (12.0-15.5); HGB HCT DIFFERENCE -1.1; MEAN CORPUSCULAR VOLUME 85 fl (80-97); RED BLOOD COUNT 3.54 10^6/uL (3.72-5.28); RED CELL DISTRIBUTION WIDTH 15.6 % (11.5-14.0); WHITE BLOOD COUNT 4.4 10^3/uL (4.0-10.5)
[2016-05-24 06:36] LABS: ANION GAP 9 (5-19); BLOOD UREA NITROGEN 11 mg/dL (7-20); CARBON DIOXIDE 28 mmol/L (22-30); CHLORIDE 100 mmol/L (98-107); CREATININE RESULT 0.81 mg/dL (0.52-1.25); GLUCOSE 209 mg/dL (75-110); MAGNESIUM 1.8 mg/dL (1.6-2.3); POTASSIUM 4.2 mmol/L (3.6-5.0); SODIUM 136.7 mmol/L (137-145)
[2016-05-24] MEDS: INSULIN LISPRO 100 UNIT/ML 3 ML VIAL SUBCUT PRN ×2 (08:27→12:20)
[2016-05-24] MEDS: HEPARIN SOD (PORCINE) 5,000 UNIT/ML 1 ML SYRINGE SUBCUT SCH (09:37)
[2016-05-24] MEDS: INSULIN DETEMIR 100 UNIT/ML 3 ML PEN SUBCUT SCH (09:37)
[2016-05-24] MEDS: CEFTRIAXONE 1 GM/D5W RTU 50 ML IV SCH (09:38)
[2016-05-24] MEDS ORDERED: METOCLOPRAMIDE HCL ORAL SOLN 10 MG/10 ML UDCUP PO ONE (10:30)
[2016-05-24] MEDS ORDERED: MAG HYDROX/AL HYDROX/SIMETH SUSP 30 ML UDCUP PO ONE (10:30)
[2016-05-24] MEDS ORDERED: LIDOCAINE 2% VISCOUS SOLN 20 ML UDCUP PO ONE (10:30)
[2016-05-24 13:07] VITALS: BP 132/95
[2016-05-24] MEDS ORDERED: BISACODYL 10 MG SUPP.RECT PR PRN (13:22)
[2016-05-24] MEDS ORDERED: HYDROXYZINE PAMOATE 25 MG CAPSULE PO PRN ×2 (13:39→14:38)
--- NOTE | 2016-05-24 15:44 | PDOC PROGRESS REPORT ---
Subjective Progress Note for:: 05/24/16 Subjective:: The patient was seen earlier today on rounds. The patient denies any nausea, vomiting, diarrhea, shortness of breath, dizziness, chest pain, heart palpitations, fevers, or chills. Patient states that her shoulder pain persist but her neck pain has resolved. The patient has remained afebrile. Blood pressures have been in a good range. When prompted the patient voices no other concerns at this time. During my rounds of once again reiterated to the patient that I would keep her in-house to receive 5 days of IV antibiotics given her disruptive and intermittent use of oral antibiotics for treatment of UTI there is concern for development of resistance and palate. I have discussed this with the patient every day that I have rounded however each time I see the patient she perceives this to be new information. I was notified by nursing staff around noon that the patient was threatening to leave AGAINST MEDICAL ADVICE. The patient demanded to see me at the bedside at that time however I was unable to present immediately. I notified emergency member services representative Ms. Lainez and the patient was indeed attempting to leave AGAINST MEDICAL ADVICE. The patient had previously agreed to stay in the hospital until a rehabilitation bed to be arranged. EMS has worked diligently to get the patient into rehabilitation given the volume of calls and interventions that the patient requires. Apparently ED semiconductor processor as well as Ms. Lainez visited the patient and was able to talk the patient into staying. However the patient once again requested me at the bedside. I have asked Ms. Lainez what the patient wanted and she stated the patient wanted to know the plan. I communicated the known plan to Ms. Lainez to reiterate to the patient. I was not a position to go to the patient's bedside to discuss social matters. According to nursing staff the patient has requested something for anxiety. The patient states that she can take Vistaril. Review of systems: The rest of the review of systems is negative. Physical Exam Vital Signs: Temp Pulse Resp BP Pulse Ox 98.5 F 93 14 132/95 H 100 05/24/16 11:39 05/24/16 11:39 05/24/16 11:39 05/24/16 11:39 05/24/16 11:39 Intake & Output 05/22/16 05/23/16 05/24/16 23:59 23:59 23:59 Intake Total 5092 2124 1063 Output Total 1550 1999 1999 Balance 2962 124 -937 Weight 60.5 kg 57.8 kg 56.9 kg General appearance: PRESENT: no acute distress, cooperative, well-developed, well-nourished Head exam: PRESENT: atraumatic, normocephalic Eye exam: PRESENT: conjunctiva pink, EOMI, PERRLA. ABSENT: scleral icterus Ear exam: PRESENT: normal external ear exam Mouth exam: PRESENT: moist, tongue midline Neck exam: ABSENT: carotid bruit, JVD, lymphadenopathy, thyromegaly Respiratory exam: PRESENT: clear to auscultation [place], symmetrical, unlabored. ABSENT: rales, rhonchi, tachypnea, wheezes Cardiovascular exam: PRESENT: RRR. ABSENT: diastolic murmur, rubs, systolic murmur Pulses: PRESENT: normal dorsalis pedis pul Vascular exam: PRESENT: normal capillary refill GI/Abdominal exam: PRESENT: normal bowel sounds, soft. ABSENT: distended, guarding, mass, organolmegaly, rebound, tenderness Rectal exam: PRESENT: deferred Extremities exam: PRESENT: full ROM. ABSENT: calf tenderness, clubbing, pedal edema Neurological exam: PRESENT: alert, awake, oriented to person, oriented to place , oriented to time, oriented to situation, CN II-XII grossly intact. ABSENT: motor sensory deficit Psychiatric exam: PRESENT: appropriate affect, normal mood. ABSENT: homicidal ideation, suicidal ideation Skin exam: PRESENT: dry, intact, warm. ABSENT: cyanosis, rash Results Laboratory Results: 05/24/16 05:16 05/24/16 05:16 05/24/16 05/24/16 05:16 05:16 WBC 4.4 RBC 3.54 L Hgb 9.6 L Hct 29.9 L MCV 85 MCH 27.0 MCHC 32.0 RDW 15.6 H Plt Count 250 Sodium 136.7 L Potassium 4.2 Chloride 100 Carbon Dioxide 28 Anion Gap 9 BUN 11 Creatinine 0.81 Est GFR ( Amer) > 60 Est GFR (Non-Af Amer) > 60 Glucose 209 H Calcium 9.0 Magnesium 1.8 Impressions: Renal Ultrasound 05/21/16 00:00 IMPRESSION: No hydronephrosis. Normal size kidneys bilaterally. Dependent debris in the bladder, correlate clinically for cystitis or hematuria Chest X-Ray 05/21/16 11:23 IMPRESSION: Right central line tip in the right atrium. No pneumothorax. Assessment & Plan - Diagnosis (1) UTI (urinary tract infection) Qualifiers: Urinary tract infection type: site unspecified Hematuria presence: with hematuria Qualified Code(s): N39.0 - Urinary tract infection, site not specified Is this a current diagnosis for this admission?: YesPlan: The patient only had a colony of 4000. The patient has had Escherichia coli that is resistant to meri quinolones in the recent past. A she has responded very well to Rocephin. I have agreed for the patient received 5 days of IV Rocephin in an effort keep the patient in-house until a rehabilitation bed is found. (2) Diabetic ketoacidosis Qualifiers: Diabetes mellitus type: type 1 Diabetes mellitus complication detail: with coma Qualified Code(s): E10.11 - Type 1 diabetes mellitus with ketoacidosis with coma Is this a current diagnosis for this admission?: YesPlan: This alone could explain the patient's symptoms. Apparently the patient has partied excessively in the past month. Does not have to be an infectious process this could be the source of the patient's problems. (3) SIRS (systemic inflammatory response syndrome) Is this a current diagnosis for this admission?: YesPlan: It secondary to the above this is resolved (4) ARF (acute renal failure) Qualifiers: Acute renal failure type: unspecified Qualified Code(s): N17.9 - Acute kidney failure, unspecified Is this a current diagnosis for this admission?: YesPlan: Resolved (5) Acute encephalopathy Is this a current diagnosis for this admission?: YesPlan: Is likely secondary to #1. The patient has presented like this before when in DKA. Improved. (6) Dehydration with hypernatremia Is this a current diagnosis for this admission?: YesPlan: Hydration (7) Hyperproteinemia Is this a current diagnosis for this admission?: Yes (8) Gastroparesis Is this a current diagnosis for this admission?: Yes (9) Polysubstance abuse Is this a current diagnosis for this admission?: Yes (10) Cocaine abuse Is this a current diagnosis for this admission?: YesPlan: Edi Cullen, bobbin cleaner hand and Ms. Lainez [phone] had managed to arrange drug rehab for the patient; however, she was admitted before she could get there. She has agreed to go again. I am uncertain of the details but Cullen gave me the above contact information for him. (11) Hypertension Qualifiers: Hypertension type: other secondary hypertension Qualified Code(s): I15.8 - Other secondary hypertension (12) Iron deficiency anemia due to dietary causes Is this a current diagnosis for this admission?: YesPlan: Will repeat CBC in am (13) Noncompliance Is this a current diagnosis for this admission?: Yes (14) DVT prophylaxis Is this a current diagnosis for this admission?: Yes - Time Time Spent with patient: on this visit including assessment, plan, physical examination, resource alignment and patient education is 35 minutes. Time Spent with patient: 35 or more minutes Medications reviewed and adjusted accordingly: Yes Anticipated discharge: Acute Rehab Within: when bed available Disposition: The patient is a full code. Pending patient's symptomatology and diagnostic findings will reevaluate in the a.m.
--- NOTE | 2016-05-24 17:23 | DISCHARGE SUMMARY E ---
Discharge Summary NAME: JACKIE GARCIA : 1990 AGE: 26Y ADMITTED: 05/21/2016 DISCHARGED: 05/24/2016 AGAINST MEDICAL ADVICE SUMMARY CODE STATUS: FULL CODE. PRIMARY CARE PROVIDER: [facility]. WORKING DIAGNOSES AT THE TIME THE PATIENT LEFT AGAINST MEDICAL ADVICE: Includes: 1. Diabetic ketoacidosis. 2. Systemic inflammatory response syndrome secondary to UTI and DKA. 3. Acute renal failure which resolved. 4. Acute encephalopathy. The patient returned to baseline. 5. Dehydration with hypernatremia. 6. Hyperproteinemia. 7. Gastroparesis. 8. Polysubstance abuse. 9. Cocaine abuse. 10. Hypertension. 11. Iron-deficiency anemia due to dietary causes. 12. Noncompliance. HISTORY OF PRESENT ILLNESS: The patient is a 26-year-old -[place] female that is well known to the hospitalist service. The patient was brought to the emergency department via EMS after being noted to have altered mental status. The patient was brought in for exhibiting altered mental status for greater than 24 hours. The patient had apparently locked herself in her room and was having urinary and fecal incontinence. Apparently the patient has been doing this for sometime. According to communication with providers, the patient "parties," and when she comes home she has to be diapered until she "richard up." While in the emergency department the patient had findings that were consistent with DKA, and the patient was referred to the hospitalist for admission and management. HOSPITAL COURSE: The patient was admitted to [facility]. The patient was volume resuscitated and started on an insulin drip. The patient's gap closed, and the patient's chemistries overall improved. The patient's blood cultures: One bottle of one set grew Aerococcus viridans, and the patient's urine culture had a very small colony that was unable to be further grown out. However, the patient responded nicely to Rocephin which she has been sensitive to in the past, and therefore this was continued. During the patient's stay, I had the pleasure of meeting the department coordinator, Edi Cullen, who is attempting to arrange rehab for the patient, and the patient has agreed, given that the patient has had multiple re-admissions and utilizes a great deal of EMS resources. The patient agreed to stay in the hospital until she could go to rehab. However, I explained to the patient that ideally she would complete 5 days of IV antibiotics given her abuse of antibiotics in the past to ensure that there was not any element of pyelonephritis. The patient refused to stay any further. Although I met with the patient on multiple occasions throughout the day during her stay, the patient demanded for me to go at the bedside on the day that she left and troubleshoot things such as anxiety over the phone. The patient received Vistaril for her anxiety; however, she felt that this was not enough and insisted on leaving against medical advice, although the patient had been met with today by the community fan balancer coordinator as well as the mattress spring encaser from emergency department, who I had notified that the patient was going to leave AMA. Even though they attempted to intervene, the patient still insisted on leaving AMA and has elected to do such. Time spent on this AMA summary is 10 minutes. DICTATING PHYSICIAN: DONTE HUTSON NP [id number] PHY#: [id number] ID: [id number] JOB#: [id number] ACCT: [id number] cc:MARK JOYCE M.D. DONTE HUTSON NP >
== END 2016-05-24 16:00 | disposition left against medical advice (07) | DRG 637 ==
LOC: ER 02:12 → EH 05:54 → UNDOADMIN 05:54 → EH 07:35 → 3W 15:00
PROVIDERS: ADMIT Family Medicine; ATTEND Family Medicine
PROC: 02H633Z Insertion of Infusion Device into Right Atrium, Percutaneous Approach (ICD-10-PCS; principal; 2016-05-21)
DX: E10.11 Type 1 diabetes mellitus with ketoacidosis with coma (principal); G93.40 Encephalopathy, unspecified; N39.0 Urinary tract infection, site not specified; N17.9 Acute kidney failure, unspecified; E87.0 Hyperosmolality and hypernatremia; E86.0 Dehydration; E88.09 Other disorders of plasma-protein metabolism, not elsewhere classified; E10.43 Type 1 diabetes mellitus with diabetic autonomic (poly)neuropathy; K31.84 Gastroparesis; I15.8 Other secondary hypertension; D50.9 Iron deficiency anemia, unspecified; F19.10 Other psychoactive substance abuse, uncomplicated; F14.10 Cocaine abuse, uncomplicated; K21.9 Gastro-esophageal reflux disease without esophagitis; F41.9 Anxiety disorder, unspecified; F31.9 Bipolar disorder, unspecified; D63.8 Anemia in other chronic diseases classified elsewhere; B96.20 Unspecified Escherichia coli [E. coli] as the cause of diseases classified elsewhere; Z91.19 Patient's noncompliance with other medical treatment and regimen; Z82.49 Family history of ischemic heart disease and other diseases of the circulatory system; Z88.8 Allergy status to other drugs, medicaments and biological substances
CPT/HCPCS: 36415; 51701; 71010; 76770; 80048; 80053; 80307; 81001; 82140; 82271; 82803; 82962; 83605; 83735; 84703; 85025; 85027; 85610; 87040; 87077; 87086; 93005; 93010; 96361; 96374; 96375; 99285; C1751; J0696; J1644; J1815; J2405; J3370; J3480; J3490; J7030; J7060; S0164

== ENCOUNTER 2016-06-22 06:15 | Emergency (ER) | payer SELFPAY ==
--- NOTE | 2016-06-22 07:26 | ER Document Report ---
ED General - General Chief Complaint: Low Blood Sugar Stated Complaint: BLOOD SUGAR PROBLEMS Mode of Arrival: Medic Information source: Patient Notes: 26-year-old female history of type I diabetes who is extremely noncompliant who presents every few days with either hypoglycemia or hyperglycemia presents today found altered and hypoglycemic. Patient's blood sugar was extremely low on arrival, she was given glucagon and oral glucose and symptoms resolved. Patient herself is awake alert at this time, states she took her sliding scale insulin last night and didn't eat a blood sugar was low TRAVEL OUTSIDE OF THE [place] IN LAST 30 DAYS: No - HPI Onset: Just prior to arrival Onset/Duration: Sudden Quality of pain: No pain Severity: Mild Pain Level: Denies Associated symptoms: Weakness Exacerbated by: Denies Relieved by: Denies Similar symptoms previously: Yes Recently seen / treated by doctor: Yes - Related Data Allergies/Adverse Reactions: lisinopril [Lisinopril] Adverse Reaction (Severe, Verified 04/20/16 09:28) hypotension (5 mg dose) Past Medical History - Social History Smoking Status: Current Every Day Smoker Cigarette use (# per day): Yes Chew tobacco use (# tins/day): No Smoking Education Provided: No Frequency of alcohol use: Occasional Drug Abuse: Cocaine Family History: Reviewed & Not Pertinent, Hyperlipidemia, Hypertension - Past Medical History Cardiac Medical History: Reports: Hx Hypertension Endocrine Medical History: Reports: Hx Diabetes Mellitus Type 1 - hx of DKA GI Medical History: Reports: Hx Gastroesophageal Reflux Disease Psychiatric Medical History: Reports: Hx Bipolar Disorder, Hx Depression Past Surgical History: Reports: Hx Bowel Surgery - Patient states for holding her stomach - Immunizations Immunizations up to date: No Hx Diphtheria, Pertussis, Tetanus Vaccination: Yes Hx Pneumococcal Vaccination: 05/09/12 Review of Systems - Review of Systems Notes: REVIEW OF SYSTEMS: CONSTITUTIONAL : Denies fever, chills, or sweats. Denies recent illness. EENT: Denies eye, ear, throat, or mouth pain or symptoms. Denies nasal or sinus congestion or discharge. Denies throat, tongue, or mouth swelling or difficulty swallowing. CARDIOVASCULAR: Denies chest pain. Denies palpitations or racing or irregular heart beat. Denies ankle edema. RESPIRATORY: Denies cough, cold, or chest congestion. Denies shortness of breath, difficulty breathing, or wheezing. GASTROINTESTINAL: Denies abdominal pain or distention. Denies nausea, vomiting , or diarrhea. Denies blood in vomitus, stools, or per rectum. Denies black, tarry stools. Denies constipation. GENITOURINARY: Denies difficulty urinating, painful urination, burning, frequency, blood in urine, or discharge. FEMALE GENITOURINARY: Denies vaginal bleeding, heavy or abnormal periods, irregular periods. Denies vaginal discharge or odor. MUSCULOSKELETAL: Denies back or neck pain or stiffness. Denies joint pain or swelling. SKIN: Denies rash, lesions or sores. HEMATOLOGIC : Denies easy bruising or bleeding. LYMPHATIC: Denies swollen, enlarged glands. NEUROLOGICAL: Denies confusion or altered mental status. Denies passing out or loss of consciousness. Denies dizziness or lightheadedness. Denies headache. Denies weakness or paralysis or loss of use of either side. Denies problems with gait or speech. Denies sensory loss, numbness, or tingling. Denies seizures. PSYCHIATRIC: Denies anxiety or stress. Denies depression, suicidal ideation, or homicidal ideation. ALL OTHER SYSTEMS REVIEWED AND NEGATIVE. Dictation was performed using beModel voice recognition software PHYSICAL EXAMINATION: GENERAL: Well-appearing, well-nourished and in no acute distress. HEAD: Atraumatic, normocephalic. EYES: Pupils equal round and reactive to light, extraocular movements intact, conjunctiva are normal. ENT: Nares patent, oropharynx clear without exudates. Moist mucous membranes. NECK: Normal range of motion, supple without lymphadenopathy LUNGS: Breath sounds clear to auscultation bilaterally and equal. No wheezes rales or rhonchi. HEART: Regular rate and rhythm without murmurs ABDOMEN: Soft, nontender, nondistended abdomen. No guarding, no rebound. No masses appreciated. Female : deferred Musculoskeletal: Normal range of motion, no pitting or edema. No cyanosis. NEUROLOGICAL: Cranial nerves grossly intact. Normal speech, normal gait. Normal sensory, motor exams PSYCH: Normal mood, normal affect. SKIN: Warm, Dry, normal turgor, no rashes or lesions noted. Physical Exam - Vital signs Vitals: Resp Pulse Ox 13 100 06/22/16 06:31 06/22/16 06:31 Course - Re-evaluation Re-evalutation: 06/22/16 07:31 At this time patient has no complaints blood sugar is noted to be 300 on arrival , is awake. Patient will be discharged at this time does not require any further intervention since symptoms have resolved. I will splint the patient in depth that she will eventually kill herself due to her noncompliance. Patient states she understands. I have instructed her to return at any time if there are any other concerns After performing a Medical Screening Examination, I estimate there is LOW risk for ACUTE CORONARY SYNDROME, RESPIRATORY FAILURE, SEPSIS OR MENINGITIS, thus I consider the discharge disposition reasonable. The patient and I have discussed the diagnosis and risks, and we agree with discharging home with close follow- up. We also discussed returning to the Emergency Department immediately if new or worsening symptoms occur. We have discussed the symptoms which are most concerning (e.g., changing or worsening pain, trouble swallowing or breathing, neck stiffness, fever) that necessitate immediate return. - Vital Signs Vital signs: Temp Pulse Resp BP Pulse Ox 97.5 F 12 147/98 H 100 06/22/16 06:32 06/22/16 06:32 06/22/16 07:01 06/22/16 07:01 - Laboratory Laboratory results interpreted by me: 06/22/16 06:33 POC Glucose 185 H Discharge - Discharge Clinical Impression: Acute encephalopathy, Hypoglycemia Condition: Stable Disposition: HOME, SELF-CARE Instructions: Hypoglycemia ([facility]) Additional Instructions: You cannot allow your blood sugar to drop this is low again, eventually this will cause life-threatening issues Follow up with your physician tomorrow for further care or return to the ED IMMEDIATELY if symptoms worsen or new concerns occur
[2016-06-22 07:40] VITALS: BP 163/113
== END 2016-06-22 07:40 | disposition home or self-care (01) ==
LOC: ER 06:15
DX: E10.649 Type 1 diabetes mellitus with hypoglycemia without coma (principal); Z91.19 Patient's noncompliance with other medical treatment and regimen; G93.40 Encephalopathy, unspecified; R53.1 Weakness; I10 Essential (primary) hypertension; F17.210 Nicotine dependence, cigarettes, uncomplicated
CPT/HCPCS: 82962; 99285

== ENCOUNTER 2016-07-02 00:26 | Emergency (ER) | payer SELFPAY ==
[2016-07-02] MEDS ORDERED: NORMAL SALINE 1000 ML 1,000 ML IV PRN (00:42)
[2016-07-02] MEDS ORDERED: ONDANSETRON HCL INJ/PF 4 MG/2 ML SDV IV ONE (00:42)
--- NOTE | 2016-07-02 00:51 | ER Document Report ---
ED General - General Chief Complaint: Low Blood Sugar Stated Complaint: BLOOD SUGAR PROBLEM Time seen by provider: 00:48 Mode of Arrival: Medic Information source: Patient Notes: 26-year-old female brought by EMS with report of low blood sugar. Reportedly 39 in the field treated with IM glucagon and oral glucose on arrival here blood sugars over 100. Patient is tearful but has no specific complaints. At this time she cannot tell me what medicine she takes for diabetes or when was the last time she used insulin. Physical Exam: General: Alert, tearful but nontoxic HEENT: Normocephalic. Atraumatic. PERRLA. Extraocular movements intact. Oropharynx clear. Neck: Supple. Non-tender. Respiratory: No respiratory distress. Clear and equal breath sounds bilaterally. Cardiovascular: Regular rate and rhythm. Abdominal: Normal Inspection. Soft, non-tender. No distension. Normal Bowel Sounds. Back: Non-tender. No deformity or step off. Extremities: Moves all four extremities. Upper extremities: Normal inspection. Non-tender. Normal color. Normal ROM. Normal temperature. Lower extremities: Normal inspection. Non-tender. No edema. Normal color. Normal ROM. Normal temperature. Neurological: Moves all 4 extremities spontaneously answers questions appropriately Psychological: Normal affect. Normal Mood. Skin: Warm. Dry. Normal color. TRAVEL OUTSIDE OF THE [place] IN LAST 30 DAYS: No - Related Data Allergies/Adverse Reactions: lisinopril [Lisinopril] Adverse Reaction (Severe, Verified 04/20/16 09:28) hypotension (5 mg dose) Past Medical History - Social History Smoking Status: Smoker,Current Status Unk Family History: Hyperlipidemia, Hypertension - Past Medical History Cardiac Medical History: Reports: Hx Hypertension Endocrine Medical History: Reports: Hx Diabetes Mellitus Type 1 - hx of DKA GI Medical History: Reports: Hx Gastroesophageal Reflux Disease Psychiatric Medical History: Reports: Hx Bipolar Disorder, Hx Depression Past Surgical History: Reports: Hx Bowel Surgery - Patient states for holding her stomach - Immunizations Immunizations up to date: No Hx Diphtheria, Pertussis, Tetanus Vaccination: Yes Hx Pneumococcal Vaccination: 05/09/12 Review of Systems - Review of Systems Constitutional: denies: Chills, Fever EENT: denies: Ear pain, Throat pain Cardiovascular: denies: Chest pain Respiratory: denies: Cough, Short of breath Gastrointestinal: Nausea. denies: Abdominal pain Genitourinary: denies: Burning, Dysuria Female Genitourinary: denies: Musculoskeletal: denies: Back pain, Muscle pain Skin: denies: Rash Hematologic/Lymphatic: denies: Swollen glands Neurological/Psychological: denies: Weakness, Numbness Physical Exam - Vital signs Vitals: Resp BP Pulse Ox 15 148/82 H 100 07/02/16 00:46 07/02/16 00:46 07/02/16 00:46 Course - Re-evaluation Re-evalutation: 07/02/16 01:51 Pvt. IV fluids or laboratory results being obtained patient chose to sign out AGAINST MEDICAL ADVICE. Patient is awake alert answers questions appropriately and is competent she is to produce further care. She is had multiple prior visits and understands potentially life-threatening nature refusing to manage her diabetes properly. - Vital Signs Vital signs: Temp Pulse Resp BP Pulse Ox 12 148/82 H 100 07/02/16 01:00 07/02/16 00:46 07/02/16 01:00 - Laboratory Laboratory results interpreted by me: 07/02/16 00:38 POC Glucose 121 H Discharge - Discharge Clinical Impression: Hypoglycemia Condition: Stable Disposition: AGAINST MEDICAL ADVICE
[2016-07-02 01:33] VITALS: BP 148/82
== END 2016-07-02 01:34 | disposition left against medical advice (07) ==
LOC: ER 00:26
DX: E10.649 Type 1 diabetes mellitus with hypoglycemia without coma (principal); I10 Essential (primary) hypertension; R11.0 Nausea; Z53.20 Procedure and treatment not carried out because of patient's decision for unspecified reasons
CPT/HCPCS: 82962; 99285

== ENCOUNTER 2016-07-12 09:03 | Emergency (ER) | payer SELFPAY ==
[2016-07-12] MEDS ORDERED: DEXTROSE 50%-WATER 25 GM/50 ML DISP.SYRIN IV ONE ×3 (09:42→11:23)
[2016-07-12] MEDS ORDERED: DEXTROSE 5%-NORMAL SALINE 1,000 ML IV ONE (10:53)
[2016-07-12 12:02] LABS: ABSOLUTE EOSINOPHILS # (AUTO) 0.1 10^3/uL (0.0-0.6); ABSOLUTE MONOCYTES (AUTO) 0.4 10^3/uL (0.1-1.4); ABSOLUTE NEUT (AUTO) 4.5 10^3/uL (1.7-8.2); BASOPHILS % (AUTO) 0.6 % (0-2); EOSINOPHILS % (AUTO) 0.9 % (0-6); HEMOGLOBIN 10.4 g/dL (12.0-15.5); HGB HCT DIFFERENCE 0.2; LYMPHOCYTES % (AUTO) 16.9 % (13-45); MEAN CORPUSCULAR HEMOGLOBIN 29.2 pg (27.0-33.4); MEAN CORPUSCULAR HGB CONC 33.5 g/dL (32.0-36.0); MEAN CORPUSCULAR VOLUME 87 fl (80-97); MONOCYTES % (AUTO) 6.4 % (3-13); RED BLOOD COUNT 3.56 10^6/uL (3.72-5.28); SEGMENTED NEUTROPHILS % (AUTO) 75.2 % (42-78)
[2016-07-12 12:24] LABS: APPEARANCE,URINE CLEAR; BILIRUBIN,URINE NEGATIVE (NEGATIVE); GLUCOSE, URINE >=500 mg/dL (NEGATIVE); KETONES,URINE NEGATIVE (NEGATIVE); LEUKOCYTE ESTERASE,URINE NEGATIVE (NEGATIVE); NITRITE,URINE NEGATIVE (NEGATIVE); PROTEIN,URINE NEGATIVE (NEGATIVE); URINE SPECIFIC GRAVITY 1.007; UROBILINOGEN,URINE NEGATIVE mg/dL (<2.0)
[2016-07-12 12:29] LABS: ANION GAP 14 (5-19); BLOOD UREA NITROGEN 30 mg/dL (7-20); CALCIUM 9.8 mg/dL (8.4-10.2); CARBON DIOXIDE 27 mmol/L (22-30); CHLORIDE 99 mmol/L (98-107); CREATININE RESULT 0.97 mg/dL (0.52-1.25); GLUCOSE 287 mg/dL (75-110); POTASSIUM 5.1 mmol/L (3.6-5.0); SODIUM 139.7 mmol/L (137-145)
--- NOTE | 2016-07-12 13:06 | ER Document Report ---
ED General - General Chief Complaint: Low Blood Sugar Stated Complaint: ALTERED STATE,CONFUSION TRAVEL OUTSIDE OF THE [place] IN LAST 30 DAYS: No - HPI Patient complains to provider of: hypoglycemia altered mental status Notes: Patient is a brittle diabetic well known to this ER coming in the EMS after being found hypoglycemic. Patient was given rectal D50 with improvement of her mental status. Upon arrival here to the ER read check of her blood sugar shows blood sugar of 46. An IV was established and the patient's hand was given an amp of D50. After receiving an amp D50 patient stated that she was feeling much better. Denies fevers chills nausea vomiting patient is noncompliant with her medications. Denies any chest pain abdominal pain at this time. - Related Data Allergies/Adverse Reactions: lisinopril [Lisinopril] Adverse Reaction (Severe, Verified 04/20/16 09:28) hypotension (5 mg dose) Past Medical History - Social History Smoking Status: Unknown if Ever Smoked Family History: Hyperlipidemia, Hypertension - Past Medical History Cardiac Medical History: Reports: Hx Hypertension Endocrine Medical History: Reports: Hx Diabetes Mellitus Type 1 - hx of DKA GI Medical History: Reports: Hx Gastroesophageal Reflux Disease Psychiatric Medical History: Reports: Hx Bipolar Disorder, Hx Depression Past Surgical History: Reports: Hx Bowel Surgery - Patient states for holding her stomach - Immunizations Immunizations up to date: No Hx Diphtheria, Pertussis, Tetanus Vaccination: Yes Hx Pneumococcal Vaccination: 05/09/12 Review of Systems - Review of Systems Constitutional: No symptoms reported EENT: No symptoms reported Cardiovascular: No symptoms reported Respiratory: No symptoms reported Gastrointestinal: No symptoms reported Genitourinary: No symptoms reported Female Genitourinary: No symptoms reported Musculoskeletal: No symptoms reported Skin: No symptoms reported Hematologic/Lymphatic: Other - Hypoglycemia Neurological/Psychological: No symptoms reported -: Yes All other systems reviewed and negative Physical Exam - Vital signs Vitals: Temp Pulse Resp BP Pulse Ox 95.3 F L 54 L 18 105/56 L 96 07/12/16 09:45 07/12/16 09:45 07/12/16 09:45 07/12/16 09:45 07/12/16 09:45 Interpretation: Normal - General General appearance: Appears well, Alert - HEENT Head: Normocephalic, Atraumatic Eyes: Normal Pupils: PERRL - Respiratory Respiratory status: No respiratory distress Chest status: Nontender Breath sounds: Normal Chest palpation: Normal - Cardiovascular Rhythm: Regular Heart sounds: Normal auscultation Murmur: No - Abdominal Inspection: Normal Distension: No distension Bowel sounds: Normal Tenderness: Nontender Organomegaly: No organomegaly - Back Back: Normal, Nontender - Extremities General upper extremity: Normal inspection, Nontender, Normal color, Normal ROM , Normal temperature General lower extremity: Normal inspection, Nontender, Normal color, Normal ROM , Normal temperature, Normal weight bearing. No: Rosendo's sign - Neurological Neuro grossly intact: Yes Cognition: Normal Orientation: AAOx4 [place] Coma Scale Eye Opening: Spontaneous [place] Coma Scale Verbal: Oriented [place] Coma Scale Motor: Obeys Commands [place] Coma Scale Total: 15 Speech: Normal Motor strength normal: LUE, RUE, LLE, RLE Sensory: Normal - Psychological Associated symptoms: Normal affect, Normal mood - Skin Skin Temperature: Warm Skin Moisture: Dry Skin Color: Normal Course - Re-evaluation Re-evalutation: 07/12/16 15:35 Initially patient did not want to stay for lab work however after discussion patient agreed laboratory showed patient's last blood sugar was 400 this was taken rapid patient received D50. Patient was able tolerate a meal here in the ER. Otherwise bicarbonate is within normal limits no signs of acidosis no signs of DKA. Upon last evaluation patient is now requesting to sign out AGAINST MEDICAL ADVICE. Splinted the patient that her blood sugar is elevated at this time she would need to go home and continue her therapy highly recommend patient follow-up with local PCP. Patient stated understanding patient was discharged home - Vital Signs Vital signs: Temp Pulse Resp BP Pulse Ox 99.0 F 105 H 16 114/72 99 07/12/16 13:39 07/12/16 13:39 07/12/16 13:39 07/12/16 13:39 07/12/16 13:39 - Laboratory Result Diagrams: 07/12/16 11:41 07/12/16 11:41 Laboratory results interpreted by me: 07/12/16 07/12/16 07/12/16 09:10 10:08 11:41 RBC 3.56 L Hgb 10.4 L Hct 31.0 L RDW 17.0 H Potassium BUN Glucose POC Glucose 46 L 238 H Urine Glucose (UA) 07/12/16 07/12/16 07/12/16 11:41 11:47 11:59 RBC Hgb Hct RDW Potassium 5.1 H BUN 30 H Glucose 287 H POC Glucose 407 H* Urine Glucose (UA) >=500 H Discharge - Discharge Clinical Impression: Noncompliance, Hypoglycemia Diabetes Qualifiers: Diabetes mellitus type: type 1 Diabetes mellitus complication status: with hypoglycemia Diabetes mellitus complication detail: without coma Qualified Code( s): E10.649 - Type 1 diabetes mellitus with hypoglycemia without coma Condition: Good Disposition: HOME, SELF-CARE Instructions: Diabetes ([facility]), Hypoglycemia Diet ([facility]), Hypoglycemia ([facility]) Additional Instructions: It is very important that she follow-up with your primary care physician for further evaluation and control of your diabetes.
[2016-07-12 13:40] VITALS: BP 114/72
[2016-07-12 13:41] LABS: URINE BARBITURATES SCREEN NEGATIVE; URINE METHADONE SCREEN NEGATIVE; URINE OPIATES LOW NEGATIVE; URINE PHENCYCLIDINE SCREEN NEGATIVE
== END 2016-07-12 13:41 | disposition home or self-care (01) ==
LOC: ER 09:03
DX: E10.649 Type 1 diabetes mellitus with hypoglycemia without coma (principal); Z91.19 Patient's noncompliance with other medical treatment and regimen; I10 Essential (primary) hypertension; K21.9 Gastro-esophageal reflux disease without esophagitis
CPT/HCPCS: 99283; 36415; 82962; 84702; 83690; 85025; 80048; 81001; 80307; J3490

== ENCOUNTER 2016-07-23 13:32 | Inpatient (IN) | payer SELFPAY ==
[2016-07-23] MEDS ORDERED: NORMAL SALINE 100 ML with INSULIN REGULAR, HUMAN 100 UNIT IV PRN ×4 (13:54→17:49)
[2016-07-23] MEDS ORDERED: NORMAL SALINE 1000 ML 1,000 ML IV ONE (13:54)
--- NOTE | 2016-07-23 13:54 | ER Document Report ---
ED Blood Sugar Problem - General Stated Complaint: WEAKNESS Mode of Arrival: Medic Information source: Emergency Med Personnel, [facility] Records Cannot obtain history due to: Altered mental status - UNCOOPERATIVE, WILL NOT SPEAK. TRAVEL OUTSIDE OF THE [place] IN LAST 30 DAYS: No - HPI Onset: This morning Similar symptoms previously: Yes - MULTIPLE ADMISSIONS FOR SAME Recently seen / treated by doctor: Yes - 10 DAYS AGO, [facility] Juan Notes: EMS states that the patient has a long history of noncompliance. 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 She apparently lives with her mother who states that the patient refuses to give proper attention to her medical problems. Patient's mother apparently called EMS to transport patient to the emergency department for evaluation today. - Related Data Allergies/Adverse Reactions: lisinopril [Lisinopril] Adverse Reaction (Severe, Verified 04/20/16 09:28) hypotension (5 mg dose) Home Medications: Current Home Medications Unobtainable [Unobtainable] 07/23/16 [History] Past Medical History - General Information source: [facility] Records - Social History Smoking Status: Unknown if Ever Smoked Frequency of alcohol use: UNKNOWN Drug Abuse: Other - UNKNOWN Lives with: Other - UNKNOWN Family History: Hyperlipidemia, Hypertension - Past Medical History Cardiac Medical History: Reports: Hx Hypertension Endocrine Medical History: Reports: Hx Diabetes Mellitus Type 1 - hx of DKA GI Medical History: Reports: Hx Gastroesophageal Reflux Disease Psychiatric Medical History: Reports: Hx Bipolar Disorder, Hx Depression Past Surgical History: Reports: Hx Bowel Surgery - Patient states for holding her stomach - Immunizations Immunizations up to date: No Hx Diphtheria, Pertussis, Tetanus Vaccination: Yes Hx Pneumococcal Vaccination: 05/09/12 Review of Systems - Review of Systems -: Yes ROS unobtainable due to patient's medical condition Physical Exam - Vital signs Vitals: Temp Resp 98.8 F 25 H 07/23/16 13:41 07/23/16 13:41 Interpretation: Tachycardic. No: Hypotensive, Hypertensive, Febrile - General General appearance: Lethargic In distress: None - HEENT Head: Normocephalic Eyes: Normal Pupils: PERRL Ears: Normal Nasal: Normal Mucous membranes: Dry Neck: Supple - Respiratory Respiratory status: No respiratory distress Breath sounds: Normal - Cardiovascular Rhythm: Regular, Tachycardia Heart sounds: Normal auscultation Murmur: No - Abdominal Inspection: Normal Distension: No distension Bowel sounds: Hypoactive Tenderness: No: Guarding - Back Back: Normal - Extremities General upper extremity: Normal inspection General lower extremity: Normal inspection. No: Edema - Neurological Neuro grossly intact: Yes - MOVES ALL 4 EXTREMITIES PURPOSEFULLY, UNCOOPERATIVE WITH TESTING - Psychological Associated symptoms: Uncooperative - Skin Skin Temperature: Warm Skin Moisture: Dry Skin Color: Normal Skin Turgor: Elastic Course - Vital Signs Vital signs: Temp Pulse Resp BP Pulse Ox 98.8 F 8 L 79/45 L 97 07/23/16 13:41 07/23/16 19:05 07/23/16 19:05 07/23/16 19:05 - Laboratory Result Diagrams: 07/23/16 16:30 07/23/16 16:30 Laboratory results interpreted by me: 07/23/16 07/23/16 07/23/16 13:59 15:49 16:30 WBC 17.3 H Hgb 11.1 L Hct 31.9 L RDW 14.2 H Plt Count 471 H Seg Neutrophils % 88.5 H Lymphocytes % 5.7 L Absolute Neutrophils 15.3 H Sodium Chloride Anion Gap BUN Creatinine Est GFR ( Amer) Est GFR (Non-Af Amer) Glucose POC Glucose 505 H* 474 H* Alkaline Phosphatase Total Protein Urine Protein Urine Glucose (UA) Urine Ketones Urine Blood 07/23/16 07/23/16 07/23/16 16:30 17:05 17:15 WBC Hgb Hct RDW Plt Count Seg Neutrophils % Lymphocytes % Absolute Neutrophils Sodium 134.9 L Chloride 82 L Anion Gap 25 H BUN 100 H Creatinine 3.50 H Est GFR ( Amer) 19 L Est GFR (Non-Af Amer) 16 L Glucose 492 H* POC Glucose 381 H Alkaline Phosphatase 152 H Total Protein 8.9 H Urine Protein 30 H Urine Glucose (UA) >=500 H Urine Ketones 20 H Urine Blood LARGE H - EKG Interpretation by Me EKG shows normal: Sinus rhythm, Dawn, Intervals, QRS Complexes, ST-T Waves Rate: Tachycardia - Consults DR. HAMMER Time consulted: 17:40 Consulted provider: will come to ER Procedures - Additional Procedures IO insertion Time performed: 15:10 Additional Procedures: IO insertion - UNSUCCESSFUL ATTEMPT LEFT PROX. TIBIA, PROCEDURE REPEATED SUCCESSFULLY ON RIGHT. Critical Care Note - Critical Care Note Total time excluding time spent on procedures (mins): 30 Comments: SEVERE, LIFE-THREATENING DEHYDRATION, UNSTABLE VITAL SIGNS, MULTIPLE ORGAN SYSTEM DYSFUNCTION. Discharge - Discharge Clinical Impression: Cocaine abuse, Dehydration, Hyperglycemia due to type 1 diabetes mellitus ARF (acute renal failure) Qualifiers: Acute renal failure type: unspecified Qualified Code(s): N17.9 - Acute kidney failure, unspecified Condition: Serious Disposition: ADMITTED INPATIENT Admitting Provider: Hospitalist Unit Admitted: ICU
[2016-07-23] MEDS ORDERED: ONDANSETRON 4 MG TAB.RAPDIS PO ONE (14:03)
[2016-07-23] MEDS ORDERED: INSULIN REG, HUMAN 100 UNIT/ML 3 ML VIAL (PYX) SUBCUT ONE (14:03)
[2016-07-23] MEDS ORDERED: LIDOCAINE 2% INJ-PF (100 MG/5 ML) SYRINGE ONE ×3 (15:04→21:14)
[2016-07-23] MEDS ORDERED: LIDOCAINE 1% INJ (10 MG/ML) 10 ML MDV INJ ONE ×2 (15:40→15:41)
[2016-07-23] MEDS ORDERED: INSULIN REG, HUMAN 100 UNIT/ML 3 ML VIAL (PYX) ONE (16:01)
[2016-07-23 16:43] LABS: ABSOLUTE BASOPHILS # (AUTO) 0.1 10^3/uL (0.0-0.2); ABSOLUTE EOSINOPHILS # (AUTO) 0.1 10^3/uL (0.0-0.6); ABSOLUTE MONOCYTES (AUTO) 0.9 10^3/uL (0.1-1.4); ABSOLUTE NEUT (AUTO) 15.3 10^3/uL (1.7-8.2); BASOPHILS % (AUTO) 0.4 % (0-2); EOSINOPHILS % (AUTO) 0.3 % (0-6); HEMATOCRIT 31.9 % (36.0-47.0); HEMOGLOBIN 11.1 g/dL (12.0-15.5); HGB HCT DIFFERENCE 1.4; LYMPHOCYTES % (AUTO) 5.7 % (13-45); MEAN CORPUSCULAR HEMOGLOBIN 29.2 pg (27.0-33.4); MEAN CORPUSCULAR HGB CONC 34.8 g/dL (32.0-36.0); MEAN CORPUSCULAR VOLUME 84 fl (80-97); MONOCYTES % (AUTO) 5.1 % (3-13); RED BLOOD COUNT 3.79 10^6/uL (3.72-5.28); RED CELL DISTRIBUTION WIDTH 14.2 % (11.5-14.0); SEGMENTED NEUTROPHILS % (AUTO) 88.5 % (42-78); VENOUS BLOOD BASE EXCESS 3.8 mmol/L; VENOUS BLOOD HCO3 30.3 mmol/L (20-32); VENOUS BLOOD PCO2 54.9 mmHg (35-63); VENOUS BLOOD PH 7.36 (7.30-7.42); WHITE BLOOD COUNT 17.3 10^3/uL (4.0-10.5)
[2016-07-23 17:00] LABS: ALANINE AMINOTRANSFERASE 26 U/L (9-52); ALBUMIN 4.6 g/dL (3.5-5.0); ALKALINE PHOSPHATASE 152 U/L (38-126); ASPARTATE AMINO TRANSFERASE 16 U/L (14-36); BILIRUBIN,TOTAL 0.7 mg/dL (0.2-1.3); BLOOD UREA NITROGEN 100 mg/dL (7-20); CALCIUM 10.1 mg/dL (8.4-10.2); CREATINE KINASE 32 U/L (30-135); TOTAL PROTEIN 8.9 g/dL (6.3-8.2)
[2016-07-23 17:13] LABS: CREATINE KINASE MB < 0.22 ng/mL (<4.55); TROPONIN I < 0.012 ng/mL
[2016-07-23 17:23] LABS: CARBON DIOXIDE 28 mmol/L (22-30); CHLORIDE 82 mmol/L (98-107); SODIUM 134.9 mmol/L (137-145)
[2016-07-23 17:24] LABS: ANION GAP 25 (5-19)
[2016-07-23 17:32] LABS: GLUCOSE 492 mg/dL (75-110)
[2016-07-23] MEDS ORDERED: ONDANSETRON HCL INJ/PF 4 MG/2 ML SDV IV PRN (17:44)
[2016-07-23] MEDS ORDERED: ACETAMINOPHEN 650 MG SUPP.RECT PR PRN (17:44)
[2016-07-23] MEDS ORDERED: MAGNESIUM HYDROXIDE SUSP 30 ML UDCUP PO PRN (17:44)
[2016-07-23] MEDS ORDERED: NORMAL SALINE 1000 ML 1,000 ML IV PRN (17:48)
[2016-07-23] MEDS ORDERED: DEXTROSE 40% GEL 15 GM TUBE PO PRN ×2 (17:49)
[2016-07-23] MEDS ORDERED: GLUCAGON,HUMAN RECOMB 1 MG INJ IM PRN (17:49)
[2016-07-23] MEDS ORDERED: DEXTROSE 50%-WATER 25 GM/50 ML DISP.SYRIN IV PRN ×2 (17:49)
[2016-07-23 18:01] LABS: APPEARANCE,URINE CLOUDY; BILIRUBIN,URINE NEGATIVE (NEGATIVE); GLUCOSE, URINE >=500 mg/dL (NEGATIVE); KETONES,URINE 20 mg/dL (NEGATIVE); LEUKOCYTE ESTERASE,URINE NEGATIVE (NEGATIVE); NITRITE,URINE NEGATIVE (NEGATIVE); PROTEIN,URINE 30 mg/dL (NEGATIVE); URINE SPECIFIC GRAVITY 1.013; UROBILINOGEN,URINE NEGATIVE mg/dL (<2.0)
--- NOTE | 2016-07-23 18:33 | PDOC H&P ---
History of Present Illness History of Present Illness: JACKIE GARCIA is a 26 year old female noncompliant type I diabetic who is well- known to this hospital service for repeated DKA admissions with cocaine intoxication. Patient currently is nonverbal although awake and I am unable to obtain any history, review of systems, or other information from this patient. She is found to be in DKA with acute renal failure with a creatinine of 3. She has been referred to the hospital service for this. Remainder of information is obtained from review of past chart and discussion with emergency department physician. Past Medical History Cardiac Medical History: Reports: Hypertension Endocrine Medical History: Reports: Diabetes Mellitus Type 1 - hx of DKA GI Medical History: Reports: Gastroesophageal Reflux Disease Psychiatric Medical History: Reports: Bipolar Disorder, Depression Hematology: Reports: Anemia - Of chronic disease Past Surgical History Past Surgical History: Reports: None Social History Lives with: Other - UNKNOWN Smoking Status: Unknown if Ever Smoked Frequency of Alcohol Use: Occasional Hx Recreational Drug Use: Yes Drugs: Cocaine, Marijuana Hx Prescription Drug Abuse: Yes - Advance Directive Resuscitation Status: Full Code Surrogate healthcare decision maker:: Mother Family History Family History: Hyperlipidemia, Hypertension Parental Family History Reviewed: No Children Family History Reviewed: No Sibling(s) Family History Reviewed.: No Medication/Allergy Home Medications: No Home Medications 05/21/16 Allergies/Adverse Reactions: lisinopril [Lisinopril] Adverse Reaction (Severe, Verified 04/20/16 09:28) hypotension (5 mg dose) Review of Systems ROS unobtainable: Due to mental status Physical Exam Vital Signs: Temp Pulse Resp BP Pulse Ox 98.8 F 19 103/64 100 07/23/16 13:41 07/23/16 13:43 07/23/16 13:43 07/23/16 13:43 General appearance: PRESENT: disheveled, severe distress, thin. ABSENT: cooperative Head exam: PRESENT: atraumatic, normocephalic Eye exam: PRESENT: conjunctiva pink, EOMI, PERRLA. ABSENT: conjunctival injection, scleral icterus Ear exam: PRESENT: normal external ear exam Mouth exam: PRESENT: dry mucosa, tongue midline Neck exam: ABSENT: JVD, lymphadenopathy, thyromegaly, tracheal deviation Respiratory exam: PRESENT: clear to auscultation [place], symmetrical, unlabored. ABSENT: crackles, rales, rhonchi, tachypnea, wheezes Cardiovascular exam: PRESENT: RRR, +S1, +S2, tachycardia. ABSENT: diastolic murmur, gallop, rubs, systolic murmur Pulses: PRESENT: normal dorsalis pedis pul Vascular exam: PRESENT: normal capillary refill GI/Abdominal exam: PRESENT: normal bowel sounds, soft. ABSENT: distended, firm , guarding, mass, organolmegaly, rebound, rigid, tenderness Rectal exam: PRESENT: deferred Extremities exam: PRESENT: full ROM, other - Right IO in place. ABSENT: clubbing, pedal edema Neurological exam: PRESENT: alert, awake, CN II-XII grossly intact. ABSENT: oriented to person, oriented to place, oriented to time, oriented to situation, motor sensory deficit Psychiatric exam: PRESENT: flat affect, unusual affect. ABSENT: appropriate affect, homicidal ideation, normal mood, suicidal ideation Skin exam: PRESENT: dry, intact, warm. ABSENT: cyanosis, rash Results Laboratory Results: 07/23/16 16:30 07/23/16 16:30 07/23/16 07/23/16 07/23/16 16:30 16:30 16:30 WBC 17.3 H RBC 3.79 Hgb 11.1 L Hct 31.9 L MCV 84 MCH 29.2 MCHC 34.8 RDW 14.2 H Plt Count 471 H Seg Neutrophils % 88.5 H Lymphocytes % 5.7 L Monocytes % 5.1 Eosinophils % 0.3 Basophils % 0.4 Absolute Neutrophils 15.3 H Absolute Lymphocytes 1.0 Absolute Monocytes 0.9 Absolute Eosinophils 0.1 Absolute Basophils 0.1 VBG pH 7.36 VBG pCO2 54.9 VBG HCO3 30.3 VBG Base Excess 3.8 Sodium 134.9 L Potassium 4.0 Chloride 82 L Carbon Dioxide 28 Anion Gap 25 H BUN 100 H Creatinine 3.50 H Est GFR ( Amer) 19 L Est GFR (Non-Af Amer) 16 L Glucose 492 H* Calcium 10.1 Total Bilirubin 0.7 AST 16 ALT 26 Alkaline Phosphatase 152 H Total Protein 8.9 H Albumin 4.6 Serum HCG, Qual Urine Color Urine Appearance Urine pH Ur Specific [place] Urine Protein Urine Glucose (UA) Urine Ketones Urine Blood Urine Nitrite Ur Leukocyte Esterase Urine WBC (Auto) Urine RBC (Auto) 07/23/16 07/23/16 17:15 18:19 WBC RBC Hgb Hct MCV MCH MCHC RDW Plt Count Seg Neutrophils % Lymphocytes % Monocytes % Eosinophils % Basophils % Absolute Neutrophils Absolute Lymphocytes Absolute Monocytes Absolute Eosinophils Absolute Basophils VBG pH VBG pCO2 VBG HCO3 VBG Base Excess Sodium Potassium Chloride Carbon Dioxide Anion Gap BUN Creatinine Est GFR ( Amer) Est GFR (Non-Af Amer) Glucose Calcium Total Bilirubin AST ALT Alkaline Phosphatase Total Protein Albumin Serum HCG, Qual Cancelled Urine Color YELLOW Urine Appearance CLOUDY Urine pH 5.0 Ur Specific [place] 1.013 Urine Protein 30 H Urine Glucose (UA) >=500 H Urine Ketones 20 H Urine Blood LARGE H Urine Nitrite NEGATIVE Ur Leukocyte Esterase NEGATIVE Urine WBC (Auto) 5 Urine RBC (Auto) 1 07/23/16 07/23/16 16:30 16:30 Creatine Kinase 32 CK-MB (CK-2) < 0.22 Troponin I < 0.012 Impressions: Chest X-Ray 07/23/16 13:55 IMPRESSION: NO ACUTE RADIOGRAPHIC FINDING IN THE CHEST. Assessment & Plan - Diagnosis (1) Diabetic ketoacidosis Qualifiers: Diabetes mellitus type: type 1 Diabetes mellitus complication detail: without coma Qualified Code(s): E10.10 - Type 1 diabetes mellitus with ketoacidosis without coma Is this a current diagnosis for this admission?: YesPlan: Patient will be admitted to ICU. Patient is nonverbal and have concerns that she will progressively worsened. Place patient on insulin drip and IV fluids. Nothing by mouth. BMP every 4. Will check cultures for underlying precipitating cause as well as hCG. Suspect noncompliance. (2) ARF (acute renal failure) Qualifiers: Acute renal failure type: unspecified Qualified Code(s): N17.9 - Acute kidney failure, unspecified Is this a current diagnosis for this admission?: YesPlan: Likely secondary to DKA. Will aggressively hydrate and repeat this. Strict I' s and O's (3) Dehydration with hypernatremia Is this a current diagnosis for this admission?: YesPlan: IV fluids (4) Gastroparesis Is this a current diagnosis for this admission?: YesPlan: Reglan every 6 (5) Cocaine abuse Is this a current diagnosis for this admission?: YesPlan: This is likely the case and we will check a UDS. (6) Iron deficiency anemia due to dietary causes Is this a current diagnosis for this admission?: Yes (7) SIRS (systemic inflammatory response syndrome) Is this a current diagnosis for this admission?: YesPlan: Patient meets SIRS criteria secondary to DKA (8) Abnormal finding on urinalysis Is this a current diagnosis for this admission?: YesPlan: Patient has large blood but no red blood cells in her urine. Will check a CK and suspect the patient has underlying rhabdomyolysis. She will be under close surveillance for arrhythmia as well as every 4 BMPs due to her underlying DKA. - Time Time Spent: 30 to 50 Minutes Critical Time spent with patient: 35 or more minutes Medications reviewed and adjusted accordingly: Yes
[2016-07-23] MEDS ORDERED: NORMAL SALINE 1000 ML 4,000 ML IV ONE (18:45)
[2016-07-23 18:46] LABS: URINE BARBITURATES SCREEN NEGATIVE; URINE METHADONE SCREEN NEGATIVE; URINE OPIATES LOW NEGATIVE; URINE PHENCYCLIDINE SCREEN NEGATIVE
[2016-07-23] MEDS ORDERED: PANTOPRAZOLE SODIUM 40 MG VIAL IV ONE (19:00)
[2016-07-23 20:45] LABS: ANION GAP 14 (5-19); BLOOD UREA NITROGEN 102 mg/dL (7-20); CARBON DIOXIDE 30 mmol/L (22-30); CHLORIDE 91 mmol/L (98-107); CREATININE RESULT 3.35 mg/dL (0.52-1.25); GLUCOSE 125 mg/dL (75-110); POTASSIUM 3.5 mmol/L (3.6-5.0); SODIUM 135.1 mmol/L (137-145)
[2016-07-23 21:02] LABS: CREATINE KINASE 35 U/L (30-135)
[2016-07-23 21:03] LABS: ALCOHOL < 10 mg/dL (NONE DETECTED)
[2016-07-23] MEDS: METOCLOPRAMIDE HCL INJ/PF 10 MG/2 ML SDV IV SCH (21:06)
[2016-07-23] MEDS: HEPARIN SOD (PORCINE) 5,000 UNIT/ML 1 ML SYRINGE SUBCUT SCH (21:06)
[2016-07-23] MEDS: DOCUSATE SODIUM 100 MG CAPSULE PO SCH (21:07)
[2016-07-23] MEDS ORDERED: LIDOCAINE 1% INJ-PF (10 MG/ML) 30 ML SDV ONE (21:19)
--- NOTE | 2016-07-23 21:28 | OPERATIVE REPORT E ---
Operative Report NAME: JACKIE GARCIA : 1990 AGE: 26Y DATE OF SURGERY: 07/23/2016 ROOM: 607 PREOPERATIVE DIAGNOSIS: 1. Poor peripheral vein access and malfunctioning TA access. 2. Patient also in DKA with a change in mental status and elevated creatinine of 3.0. OPERATION: Insertion of right internal jugular vein catheter under ultrasound guidance. SURGEON: RUMA WINN M.D. ANESTHESIA: Local. DESCRIPTION OF PROCEDURE: An attempt was done to do a right subclavian vein, but there was a lot of scarring noted, and unable to draw blood from a catheter that was placed. Because of this, the right internal jugular vein was then identified with ultrasound guidance. The skin was punctured and infiltrated with 1% Xylocaine. A small-gauge needle was then passed through into the internal jugular vein, and this was then used as a guide together with the ultrasound into the internal jugular vein using a bigger needle. The vein was then punctured, and blood could be aspirated freely. Next, the syringe was removed and a guidewire inserted through the needle into the vena cava. The puncture site was enlarged with an 11 blade. The guidewire was used to put in a dilator. Next, the dilator was removed, and a 3-way catheter was then inserted through the guidewire. The 3 ports of the catheter were then irrigated with saline solution, and blood was easily aspirated. They were then again irrigated with saline and the ports covered with their regular port cover. Next, the 3-way catheter was anchored to the skin with 3-0 nylon. An antibiotic patch was used to place around the insertion site, and a sterile, transparent dressing was placed over the catheter. Chest x-ray was done later, which showed no evidence of pneumothorax. However, the tip of the 3-way catheter appears to be at the area of the inferior vena cava beyond the atrium. At this point we will leave the catheter for now and get the patient hydrated. It might need to be repositioned later. DICTATING PHYSICIAN: RUMA WINN M.D. [id number] PHY#: [id number] ID: [id number] JOB#: [id number] ACCT: [id number] cc:RUMA WINN M.D. > BRIDGERD
[2016-07-23] MEDS: POTASSI CL 20 MEQ/D5-1/2NS 1L 1,000 ML IV PRN (21:49)
[2016-07-23] MEDS: POTASSI CL 20 MEQ/50 ML RIDER 20 MEQ/50 ML RTUPB IV SCH (21:50)
--- NOTE | 2016-07-23 22:38 | OPERATIVE REPORT E ---
Operative Report NAME: JACKIE GARCIA : 1990 AGE: 26Y DATE OF SURGERY: 07/23/2016 ROOM: 607 PREOPERATIVE DIAGNOSIS: Triple lumen catheter tip at the area of the inferior vena cava. POSTOPERATIVE DIAGNOSIS: OPERATION: Repositioning of triple-lumen catheter. SURGEON: RUMA WINN M.D. ANESTHESIA: Local. TISSUE REMOVED OR ALTERED: DESCRIPTION OF PROCEDURE: The suture anchoring the triple-lumen catheter was cut and the catheter pulled up about 5 cm beyond the skin. The area was previously prepped with ChloraPrep. It was then anchored to the skin with 3-0 nylon under local anesthesia. A sterile transparent dressing was in place over the catheter. A portable chest x-ray was obtained immediately after the procedure, and the tip of the catheter appears to be between the junction of the superior vena cava and the right atrium. The patient tolerated the procedure well. DICTATING PHYSICIAN: RUMA WINN M.D. [id number] PHY#: [id number] ID: [id number] JOB#: [id number] ACCT: [id number] cc:RUMA WINN M.D. > MTDD
[2016-07-24] MEDS: POTASSI CL 20 MEQ/50 ML RIDER 20 MEQ/50 ML RTUPB IV SCH (00:07)
[2016-07-24 00:26] LABS: ANION GAP 6 (5-19); CALCIUM 7.6 mg/dL (8.4-10.2); CARBON DIOXIDE 25 mmol/L (22-30); CHLORIDE 106 mmol/L (98-107); CREATININE RESULT 2.47 mg/dL (0.52-1.25); GLUCOSE 194 mg/dL (75-110); POTASSIUM 3.9 mmol/L (3.6-5.0); SODIUM 136.8 mmol/L (137-145)
[2016-07-24 00:35] LABS: BLOOD UREA NITROGEN 77 mg/dL (7-20)
[2016-07-24] MEDS: POTASSI CL 20 MEQ/D5-1/2NS 1L 1,000 ML IV PRN ×2 (02:07→07:03)
[2016-07-24 02:31] LABS: ANION GAP 11 (5-19); BLOOD UREA NITROGEN 68 mg/dL (7-20); CALCIUM 7.9 mg/dL (8.4-10.2); CARBON DIOXIDE 22 mmol/L (22-30); CHLORIDE 107 mmol/L (98-107); CREATININE RESULT 2.35 mg/dL (0.52-1.25); GLUCOSE 113 mg/dL (75-110); POTASSIUM 4.2 mmol/L (3.6-5.0); SODIUM 139.6 mmol/L (137-145)
--- NOTE | 2016-07-24 05:03 | CONSULTATION REPORT E ---
Consultation Report NAME: JACKIE GARCIA : 1990 AGE: 26Y DATE: 07/24/2016 607 A TO: RUMA WINN M.D. FROM: KELVIN GLOVER M.D. Requesting Physician REASON FOR CONSULTATION: Placement of central line catheter. HISTORY OF PRESENT ILLNESS: This is a 26-year-old female, noncompliant type 1 diabetic, admitted for DKA and possible cocaine intoxication. PAST MEDICAL HISTORY: Her past medical history showed hypertension, diabetes type 1, history of DKA, gastroesophageal reflux, bipolar disorder and depression and history of anemia due to chronic disease. PAST SURGICAL SOCIAL HISTORY: None. SOCIAL HISTORY: Patient apparently is nonsmoker. Occasional alcohol use and use of recreational drugs such as cocaine and marijuana. Also, has a history of prescription drug abuse. FAMILY HISTORY: Positive for hyperlipidemia and hypertension. ALLERGIES: LISINOPRIL. REVIEW OF SYSTEMS: Unable to be obtained because of patient's mental status change. PHYSICAL EXAMINATION: GENERAL: Patient is uncooperative and appears in severe distress. HEENT: PERRLA. Conjunctiva is pink for both eyes. NECK: Supple. No thyromegaly. LUNGS: Clear to auscultation. HEART: Regular sinus, but actually somewhat tachycardic. EXTREMITIES: Full range of motion. NEUROLOGIC: Patient is awake, but quite uncooperative. IMPRESSION: Diabetic ketoacidosis with change in mental status and elevated creatinine of 3.0. RECOMMENDATIONS: A right internal jugular vein triple-lumen catheter was inserted under fluoroscopy guidance after a failed attempt to place a right subclavian vein catheter. Patient has multiple black on the skin and on the neck and on the subclavian area for previous catheter placements. Chest x-ray will be obtained for placement. DICTATING PHYSICIAN: RUMA WINN M.D. [id number] PHY#: [id number] ID: [id number] JOB#: [id number] ACCT: [id number] cc:RUMA WINN M.D. >
[2016-07-24] MEDS ORDERED: PANTOPRAZOLE SODIUM 40 MG VIAL IV SCH (06:00)
[2016-07-24 06:41] LABS: ABSOLUTE BASOPHILS # (AUTO) 0.1 10^3/uL (0.0-0.2); ABSOLUTE LYMPHOCYTES (AUTO) 1.4 10^3/uL (0.5-4.7); ABSOLUTE MONOCYTES (AUTO) 0.9 10^3/uL (0.1-1.4); ABSOLUTE NEUT (AUTO) 9.4 10^3/uL (1.7-8.2); EOSINOPHILS % (AUTO) 0.2 % (0-6); HEMATOCRIT 17.4 % (36.0-47.0); HGB HCT DIFFERENCE 0.6; LYMPHOCYTES % (AUTO) 11.5 % (13-45); MEAN CORPUSCULAR HEMOGLOBIN 29.2 pg (27.0-33.4); MEAN CORPUSCULAR HGB CONC 34.3 g/dL (32.0-36.0); MEAN CORPUSCULAR VOLUME 85 fl (80-97); MONOCYTES % (AUTO) 7.7 % (3-13); RED BLOOD COUNT 2.04 10^6/uL (3.72-5.28); RED CELL DISTRIBUTION WIDTH 14.6 % (11.5-14.0); SEGMENTED NEUTROPHILS % (AUTO) 79.6 % (42-78); WHITE BLOOD COUNT 11.8 10^3/uL (4.0-10.5)
[2016-07-24 06:48] LABS: ANION GAP 11 (5-19); BLOOD UREA NITROGEN 58 mg/dL (7-20); CALCIUM 7.9 mg/dL (8.4-10.2); CARBON DIOXIDE 20 mmol/L (22-30); CHLORIDE 107 mmol/L (98-107); CREATININE RESULT 2.01 mg/dL (0.52-1.25); GLUCOSE 114 mg/dL (75-110); POTASSIUM 4.1 mmol/L (3.6-5.0)
[2016-07-24] MEDS: HEPARIN SOD (PORCINE) 5,000 UNIT/ML 1 ML SYRINGE SUBCUT SCH (07:02)
[2016-07-24] MEDS ORDERED: NORMAL SALINE 250 ML IV PRN ×2 (07:33)
[2016-07-24] MEDS: ACETAMINOPHEN 325 MG TABLET PO PRN ×2 (08:31→23:10)
[2016-07-24] MEDS: METOCLOPRAMIDE HCL INJ/PF 10 MG/2 ML SDV IV SCH ×4 (08:32→22:19)
[2016-07-24 09:17] LABS: APPEARANCE,URINE CLEAR; BILIRUBIN,URINE NEGATIVE (NEGATIVE); GLUCOSE, URINE 50 mg/dL (NEGATIVE); KETONES,URINE TRACE mg/dL (NEGATIVE); LEUKOCYTE ESTERASE,URINE TRACE (NEGATIVE); NITRITE,URINE NEGATIVE (NEGATIVE); PROTEIN,URINE NEGATIVE (NEGATIVE); UROBILINOGEN,URINE NEGATIVE mg/dL (<2.0)
--- NOTE | 2016-07-24 09:41 | PDOC PROGRESS REPORT ---
Subjective Progress Note for:: 07/24/16 Subjective:: Patient reports that she has recently started her menses. Patient reports she had a cold prior to admission with cough productive of phlegm. Patient requests water and denies current complaints. Physical Exam Vital Signs: Temp Pulse Resp BP Pulse Ox 98.7 F 105 H 19 117/59 L 97 07/24/16 04:00 07/24/16 05:00 07/24/16 06:13 07/24/16 06:13 07/24/16 06:13 Intake & Output 07/23/16 07/24/16 07/25/16 06:59 06:59 06:59 Intake Total 6410 Output Total 1010 Balance 5400 Weight 60.9 kg Exam: General: Awake and answers questions somewhat appropriately, no acute respiratory distress HEENT: AT/NC, PERRL, EOMI, oropharynx is moist with leukoplakia, conjunctival pallor, no scleral icterus, no conjunctival injection, Neck: No JVD, trachea midline Chest: Clear to auscultation bilaterally, no wheezes rhonchi or rales CV: Regular rate and rhythm, normal S1 and S2, no murmur, rub, or gallop Abdomen: Soft, nontender to palpation, nondistended, active bowel sounds; no rebound, rigidity, or guarding Extremities: No cyanosis, clubbing; 1+edema Neuro: Cranial nerves II through XII are grossly intact without focal deficits Psych: Depressed mood and affect Results Laboratory Results: 07/24/16 06:15 07/24/16 06:15 07/23/16 07/23/16 07/23/16 18:19 19:50 19:50 WBC RBC Hgb Hct MCV MCH MCHC RDW Plt Count Seg Neutrophils % Lymphocytes % Monocytes % Eosinophils % Basophils % Absolute Neutrophils Absolute Lymphocytes Absolute Monocytes Absolute Eosinophils Absolute Basophils Sodium 135.1 L Potassium 3.5 L Chloride 91 L Carbon Dioxide 30 Anion Gap 14 BUN 102 H Creatinine 3.35 H Est GFR ( Amer) 20 L Est GFR (Non-Af Amer) 17 L Glucose 125 H Lactic Acid Calcium 10.0 Magnesium Ammonia < 8.7 L Serum HCG, Qual Cancelled 07/23/16 07/23/16 07/24/16 19:50 20:55 00:00 WBC RBC Hgb Hct MCV MCH MCHC RDW Plt Count Seg Neutrophils % Lymphocytes % Monocytes % Eosinophils % Basophils % Absolute Neutrophils Absolute Lymphocytes Absolute Monocytes Absolute Eosinophils Absolute Basophils Sodium Cancelled 136.8 L Potassium Cancelled 3.9 Chloride Cancelled 106 Carbon Dioxide Cancelled 25 Anion Gap Cancelled 6 BUN Cancelled 77 H D Creatinine Cancelled 2.47 H Est GFR ( Amer) Cancelled 29 L Est GFR (Non-Af Amer) Cancelled 24 L Glucose Cancelled 194 H Lactic Acid 0.9 Calcium Cancelled 7.6 L Magnesium Ammonia Serum HCG, Qual 07/24/16 07/24/16 07/24/16 02:00 06:15 06:15 WBC 11.8 H RBC 2.04 L Hgb 6.0 L D Hct 17.4 L MCV 85 MCH 29.2 MCHC 34.3 RDW 14.6 H Plt Count 244 Seg Neutrophils % 79.6 H Lymphocytes % 11.5 L Monocytes % 7.7 Eosinophils % 0.2 Basophils % 1.0 Absolute Neutrophils 9.4 H Absolute Lymphocytes 1.4 Absolute Monocytes 0.9 Absolute Eosinophils 0.0 Absolute Basophils 0.1 Sodium 139.6 138.0 Potassium 4.2 4.1 Chloride 107 107 Carbon Dioxide 22 20 L Anion Gap 11 11 BUN 68 H 58 H Creatinine 2.35 H 2.01 H Est GFR ( Amer) 31 L 37 L Est GFR (Non-Af Amer) 25 L 30 L Glucose 113 H 114 H Lactic Acid Calcium 7.9 L 7.9 L Magnesium 2.0 Ammonia Serum HCG, Qual 07/23/16 07/23/16 07/23/16 19:50 19:50 19:50 Creatine Kinase 35 Cancelled Troponin I 0.018 07/24/16 07/24/16 00:00 06:15 Creatine Kinase Troponin I 0.100 0.069 Impressions: Chest X-Ray 07/23/16 13:55 IMPRESSION: NO ACUTE RADIOGRAPHIC FINDING IN THE CHEST. Assessment & Plan - Diagnosis (1) SIRS (systemic inflammatory response syndrome) Is this a current diagnosis for this admission?: YesPlan: Patient meets SIRS criteria secondary to DKA (2) Diabetic ketoacidosis Qualifiers: Diabetes mellitus type: type 1 Diabetes mellitus complication detail: without coma Qualified Code(s): E10.10 - Type 1 diabetes mellitus with ketoacidosis without coma Is this a current diagnosis for this admission?: YesPlan: Downgrade patient to IMCU. Transition patient to her Levemir regimen. Obtain chest x-ray for possible underlying pneumonic process that may blossom after rehydration. Cultures are pending. (3) ARF (acute renal failure) Qualifiers: Acute renal failure type: unspecified Qualified Code(s): N17.9 - Acute kidney failure, unspecified Is this a current diagnosis for this admission?: YesPlan: Secondary to dehydration. Continue aggressive rehydration. Strict I's and O's (4) Dehydration with hypernatremia Is this a current diagnosis for this admission?: Yes (5) Gastroparesis Is this a current diagnosis for this admission?: YesPlan: Reglan every 6 (6) Iron deficiency anemia due to dietary causes Is this a current diagnosis for this admission?: YesPlan: We'll continue iron (7) Acute blood loss anemia Is this a current diagnosis for this admission?: YesPlan: Patient with acute blood loss anemia secondary to rehydration and menstrual cycle. Will give patient 2 units packed red blood cells as her hemoglobin is currently 6. - Time Time Spent with patient: 25-34 minutes Medications reviewed and adjusted accordingly: Yes
[2016-07-24] MEDS: NYSTATIN 500000 UNIT/5 ML UDCUP PO SCH ×4 (09:58→22:19)
[2016-07-24] MEDS: DOCUSATE SODIUM 100 MG CAPSULE PO SCH ×2 (09:58→18:04)
[2016-07-24] MEDS: INSULIN LISPRO 100 UNIT/ML 3 ML VIAL SUBCUT PRN ×3 (09:58→22:18)
[2016-07-24] MEDS ORDERED: INSULIN DETEMIR 100 UNIT/ML 3 ML PEN SUBCUT SCH ×2 (10:00→22:00)
--- NOTE | 2016-07-24 10:47 | PSYCHOLOGICAL NOTE ---
Psych Note - Psych Note Psych Note: Patient received a capacity evaluation on 02/20/2016. Finds were as followed Impression / Plan: Patient is well known to this Provider the Department. She has presented 24 times since May 2015 and 36 times since May 2014 for DKA. Patient purports she gets DKA because she cannot afford medication or supplies, however, medication and supplies are given to her regularly. Patient has a history of polysubstance and cocaine use/ abuse and medical non- compliance. She wishes for others to care for her so that she does not have too. Patient denied any suicidal ideation, intent or plan. It is believed, however, that due to Patient's chronic medical non-compliance and unwillingness or inability to care for self, she is in need of medical guardianship and the guardian should not be a family member or a friend. Patient also is recommended for a psychological evaluation / testing assessment of her intellectual capacities and independent living skills since she has been unable to provide evidence of her ability to care for self. Her true psychological status is difficult to assess given her lack of motivation, energy , and ongoing issues with diabetes.
[2016-07-24 10:51] LABS: ANION GAP 8 (5-19); BLOOD UREA NITROGEN 49 mg/dL (7-20); CALCIUM 7.9 mg/dL (8.4-10.2); CARBON DIOXIDE 21 mmol/L (22-30); CHLORIDE 103 mmol/L (98-107); CREATININE RESULT 1.98 mg/dL (0.52-1.25); GLUCOSE 181 mg/dL (75-110); POTASSIUM 3.7 mmol/L (3.6-5.0)
[2016-07-24] MEDS: NORMAL SALINE 1000 ML 1,000 ML IV PRN (12:38)
[2016-07-24 16:05] LABS: ANION GAP 9 (5-19); BLOOD UREA NITROGEN 40 mg/dL (7-20); CALCIUM 7.9 mg/dL (8.4-10.2); CARBON DIOXIDE 21 mmol/L (22-30); CHLORIDE 106 mmol/L (98-107); CREATININE RESULT 1.82 mg/dL (0.52-1.25); POTASSIUM 3.5 mmol/L (3.6-5.0); SODIUM 135.7 mmol/L (137-145)
--- NOTE | 2016-07-24 16:07 | EKG REPORT ---
SEVERITY:- OTHERWISE NORMAL ECG - SINUS TACHYCARDIA : Confirmed by: Elaina Doe MD 24-Jul-2016 16:07:20
[2016-07-24 16:23] LABS: GLUCOSE 35 mg/dL (75-110)
[2016-07-24 17:46] LABS: ANION GAP 12 (5-19); BLOOD UREA NITROGEN 38 mg/dL (7-20); CALCIUM 7.8 mg/dL (8.4-10.2); CARBON DIOXIDE 16 mmol/L (22-30); CHLORIDE 103 mmol/L (98-107); CREATININE RESULT 1.65 mg/dL (0.52-1.25); GLUCOSE 190 mg/dL (75-110); POTASSIUM 3.5 mmol/L (3.6-5.0); SODIUM 130.6 mmol/L (137-145)
[2016-07-24] MEDS: LANSOPRAZOLE 30 MG TAB.RAP.DR PO SCH (18:04)
[2016-07-24] MEDS ORDERED: HYDROXYZINE PAMOATE 50 MG CAPSULE PO PRN (18:10)
[2016-07-24] MEDS ORDERED: CLINDAMYCIN 600 MG/D5W RTU 600 MG/50 ML RTUPB IV ONE (19:15)
[2016-07-24] MEDS: HALOPERIDOL LACTATE INJ 5 MG/1 ML VIAL IV PRN (20:41)
[2016-07-24] MEDS ORDERED: HYDROXYZINE PAMOATE 50 MG CAPSULE ONE (20:54)
[2016-07-25] MEDS: CLINDAMYCIN 600 MG/D5W RTU 600 MG/50 ML RTUPB IV SCH ×3 (01:29→17:00)
[2016-07-25 05:23] LABS: ABSOLUTE EOSINOPHILS # (AUTO) 0.2 10^3/uL (0.0-0.6); ABSOLUTE LYMPHOCYTES (AUTO) 2.2 10^3/uL (0.5-4.7); ABSOLUTE MONOCYTES (AUTO) 0.6 10^3/uL (0.1-1.4); ABSOLUTE NEUT (AUTO) 4.9 10^3/uL (1.7-8.2); BASOPHILS % (AUTO) 0.6 % (0-2); EOSINOPHILS % (AUTO) 2.3 % (0-6); HEMATOCRIT 25.9 % (36.0-47.0); HGB HCT DIFFERENCE 1.4; LYMPHOCYTES % (AUTO) 27.3 % (13-45); MEAN CORPUSCULAR HEMOGLOBIN 29.3 pg (27.0-33.4); MEAN CORPUSCULAR HGB CONC 34.9 g/dL (32.0-36.0); MEAN CORPUSCULAR VOLUME 84 fl (80-97); RED CELL DISTRIBUTION WIDTH 14.3 % (11.5-14.0); SEGMENTED NEUTROPHILS % (AUTO) 61.8 % (42-78); WHITE BLOOD COUNT 7.9 10^3/uL (4.0-10.5)
[2016-07-25 05:30] LABS: HEMOGLOBIN 9.1 g/dL (12.0-15.5)
[2016-07-25 05:39] LABS: ALANINE AMINOTRANSFERASE 38 U/L (9-52); ALBUMIN 2.7 g/dL (3.5-5.0); ALKALINE PHOSPHATASE 78 U/L (38-126); ANION GAP 12 (5-19); ASPARTATE AMINO TRANSFERASE 38 U/L (14-36); BILIRUBIN,TOTAL 0.5 mg/dL (0.2-1.3); BLOOD UREA NITROGEN 27 mg/dL (7-20); CALCIUM 8.5 mg/dL (8.4-10.2); CARBON DIOXIDE 19 mmol/L (22-30); CHLORIDE 108 mmol/L (98-107); GLUCOSE 64 mg/dL (75-110); POTASSIUM 3.8 mmol/L (3.6-5.0); SODIUM 139.2 mmol/L (137-145); TOTAL PROTEIN 5.7 g/dL (6.3-8.2)
[2016-07-25] MEDS: LANSOPRAZOLE 30 MG TAB.RAP.DR PO SCH ×2 (05:41→16:57)
[2016-07-25] MEDS: NORMAL SALINE 1000 ML 1,000 ML IV PRN ×2 (05:42→16:55)
[2016-07-25] MEDS: METOCLOPRAMIDE HCL INJ/PF 10 MG/2 ML SDV IV SCH ×4 (08:03→21:20)
[2016-07-25] MEDS: INSULIN DETEMIR 100 UNIT/ML 3 ML PEN SUBCUT SCH ×2 (09:26→22:58)
[2016-07-25] MEDS: DOCUSATE SODIUM 100 MG CAPSULE PO SCH ×2 (09:28→17:01)
[2016-07-25] MEDS: NYSTATIN 500000 UNIT/5 ML UDCUP PO SCH ×4 (09:29→21:20)
[2016-07-25] MEDS: INSULIN LISPRO 100 UNIT/ML 3 ML VIAL SUBCUT PRN ×2 (12:29→23:08)
[2016-07-25] MEDS: HALOPERIDOL LACTATE INJ 5 MG/1 ML VIAL IV PRN (13:45)
[2016-07-25] MEDS ORDERED: HALOPERIDOL LACTATE INJ 5 MG/1 ML VIAL IV PRN (13:55)
[2016-07-25] MEDS ORDERED: FUROSEMIDE INJ/PF 20 MG/2 ML SDV IV ONE (14:00)
--- NOTE | 2016-07-25 16:21 | PDOC PROGRESS REPORT ---
Subjective Progress Note for:: 07/25/16 Subjective:: Patient reports she's feeling fine and wants to go home. Patient denies chest pain, shortness of breath, abdominal pain, nausea, vomiting , fevers, chills, diarrhea, constipation, headache, new onset weakness. Physical Exam Vital Signs: Temp Pulse Resp BP Pulse Ox 98.0 F 95 16 115/69 99 07/25/16 04:31 07/25/16 07:00 07/25/16 04:31 07/25/16 04:31 07/25/16 04:31 Intake & Output 07/24/16 07/25/16 07/26/16 06:59 06:59 06:59 Intake Total 6410 4058 Output Total 1010 3650 Balance 5400 408 Weight 60.9 kg 63.9 kg Exam: General: Awake and answers questions somewhat appropriately, no acute respiratory distress HEENT: AT/NC, PERRL, EOMI, oropharynx is moist with leukoplakia, conjunctival pallor, no scleral icterus, no conjunctival injection, Neck: No JVD, trachea midline Chest: Clear to auscultation bilaterally, no wheezes rhonchi or rales CV: Regular rate and rhythm, normal S1 and S2, no murmur, rub, or gallop Abdomen: Soft, nontender to palpation, nondistended, active bowel sounds; no rebound, rigidity, or guarding Extremities: No cyanosis, clubbing; 1+edema Neuro: Cranial nerves II through XII are grossly intact without focal deficits Psych: Depressed mood and affect Results Laboratory Results: 07/25/16 05:08 07/25/16 05:08 07/24/16 07/24/16 07/24/16 08:00 08:13 10:05 WBC RBC Hgb Hct MCV MCH MCHC RDW Plt Count Seg Neutrophils % Lymphocytes % Monocytes % Eosinophils % Basophils % Absolute Neutrophils Absolute Lymphocytes Absolute Monocytes Absolute Eosinophils Absolute Basophils Sodium 132.0 L Potassium 3.7 Chloride 103 Carbon Dioxide 21 L Anion Gap 8 BUN 49 H Creatinine 1.98 H Est GFR ( Amer) 37 L Est GFR (Non-Af Amer) 31 L Glucose 181 H Calcium 7.9 L Total Bilirubin AST ALT Alkaline Phosphatase Total Protein Albumin Urine Color STRAW Urine Appearance CLEAR Urine pH 5.0 Ur Specific [place] 1.010 Urine Protein NEGATIVE Urine Glucose (UA) 50 H Urine Ketones TRACE H Urine Blood SMALL H Urine Nitrite NEGATIVE Ur Leukocyte Esterase TRACE H Urine WBC (Auto) 5 Urine RBC (Auto) 1 Blood Type B POSITIVE Antibody Screen NEGATIVE 07/24/16 07/24/16 07/25/16 15:30 17:10 05:08 WBC 7.9 RBC 3.10 L Hgb 9.1 L D Hct 25.9 L MCV 84 MCH 29.3 MCHC 34.9 RDW 14.3 H Plt Count 222 Seg Neutrophils % 61.8 Lymphocytes % 27.3 Monocytes % 8.0 Eosinophils % 2.3 Basophils % 0.6 Absolute Neutrophils 4.9 Absolute Lymphocytes 2.2 Absolute Monocytes 0.6 Absolute Eosinophils 0.2 Absolute Basophils 0.0 Sodium 135.7 L 130.6 L Potassium 3.5 L 3.5 L Chloride 106 103 Carbon Dioxide 21 L 16 L Anion Gap 9 12 BUN 40 H 38 H Creatinine 1.82 H 1.65 H Est GFR ( Amer) 41 L 46 L Est GFR (Non-Af Amer) 34 L 38 L Glucose 35 L* 190 H Calcium 7.9 L 7.8 L Total Bilirubin AST ALT Alkaline Phosphatase Total Protein Albumin Urine Color Urine Appearance Urine pH Ur Specific [place] Urine Protein Urine Glucose (UA) Urine Ketones Urine Blood Urine Nitrite Ur Leukocyte Esterase Urine WBC (Auto) Urine RBC (Auto) Blood Type Antibody Screen 07/25/16 05:08 WBC RBC Hgb Hct MCV MCH MCHC RDW Plt Count Seg Neutrophils % Lymphocytes % Monocytes % Eosinophils % Basophils % Absolute Neutrophils Absolute Lymphocytes Absolute Monocytes Absolute Eosinophils Absolute Basophils Sodium 139.2 Potassium 3.8 Chloride 108 H Carbon Dioxide 19 L Anion Gap 12 BUN 27 H Creatinine 1.60 H Est GFR ( Amer) 48 L Est GFR (Non-Af Amer) 40 L Glucose 64 L Calcium 8.5 Total Bilirubin 0.5 AST 38 H ALT 38 Alkaline Phosphatase 78 Total Protein 5.7 L Albumin 2.7 L Urine Color Urine Appearance Urine pH Ur Specific [place] Urine Protein Urine Glucose (UA) Urine Ketones Urine Blood Urine Nitrite Ur Leukocyte Esterase Urine WBC (Auto) Urine RBC (Auto) Blood Type Antibody Screen 07/23/16 07/23/16 07/23/16 19:50 19:50 19:50 Creatine Kinase 35 Cancelled Troponin I 0.018 07/24/16 07/24/16 07/24/16 00:00 06:15 08:13 Creatine Kinase 164 H Troponin I 0.100 0.069 Impressions: Chest X-Ray 07/24/16 18:37 IMPRESSION: Interval progression in the right basilar density is noted above. Central line has been partially withdrawn with its tip now overlying the right apex presumably in the internal jugular vein Assessment & Plan - Diagnosis (1) Sepsis Qualifiers: Sepsis type: sepsis due to unspecified organism Qualified Code(s): A41.9 - Sepsis, unspecified organism Is this a current diagnosis for this admission?: YesPlan: Patient has aspiration pneumonia and is improving with clindamycin (2) Pneumonia Qualifiers: Pneumonia type: aspiration pneumonia Laterality: right Lung location: lower lobe of lung Is this a current diagnosis for this admission?: YesPlan: Patient with likely aspiration pneumonia from her previous stents of obtundation. Right lower and middle lobe pneumonia. On clindamycin and improving. Continue nebulized treatments. (3) Diabetic ketoacidosis Qualifiers: Diabetes mellitus type: type 1 Diabetes mellitus complication detail: without coma Qualified Code(s): E10.10 - Type 1 diabetes mellitus with ketoacidosis without coma Is this a current diagnosis for this admission?: YesPlan: Continue Levemir regimen. And encourage oral intake of food. (4) ARF (acute renal failure) Qualifiers: Acute renal failure type: unspecified Qualified Code(s): N17.9 - Acute kidney failure, unspecified Is this a current diagnosis for this admission?: YesPlan: Secondary to dehydration. Continue aggressive rehydration. Patient is nonoliguric renal failure. Continue to monitor I's and O's strictly. Remove Ladd. (5) Dehydration with hypernatremia Is this a current diagnosis for this admission?: Yes (6) Gastroparesis Is this a current diagnosis for this admission?: Yes (7) Iron deficiency anemia due to dietary causes Is this a current diagnosis for this admission?: Yes (8) Acute blood loss anemia Is this a current diagnosis for this admission?: YesPlan: Patient with acute blood loss anemia secondary to rehydration and menstrual cycle. Will give patient 2 units packed red blood cells as her hemoglobin is currently 6. Patient's DVT prophylaxis has been stopped. (9) questionable competency Is this a current diagnosis for this admission?: YesPlan: Patient was evaluated in February 2016 for competency. At that time it was felt the patient needed a medical guardian which should not be her family or friend. Will report current encounter to APS. Made an attempt to reach patient's mother at [phone] but no answer. - Time Time Spent with patient: 25-34 minutes Medications reviewed and adjusted accordingly: Yes
[2016-07-25] MEDS: INSULIN LISPRO 100 UNIT/ML 3 ML VIAL SUBCUT SCH (16:58)
[2016-07-25 17:44] LABS: ALANINE AMINOTRANSFERASE 39 U/L (9-52); ALBUMIN 2.9 g/dL (3.5-5.0); ALKALINE PHOSPHATASE 85 U/L (38-126); ANION GAP 12 (5-19); ASPARTATE AMINO TRANSFERASE 51 U/L (14-36); BILIRUBIN,TOTAL 0.5 mg/dL (0.2-1.3); BLOOD UREA NITROGEN 18 mg/dL (7-20); CALCIUM 8.6 mg/dL (8.4-10.2); CARBON DIOXIDE 20 mmol/L (22-30); CHLORIDE 104 mmol/L (98-107); CREATININE RESULT 1.47 mg/dL (0.52-1.25); GLUCOSE 113 mg/dL (75-110); POTASSIUM 3.9 mmol/L (3.6-5.0); SODIUM 135.8 mmol/L (137-145)
[2016-07-26] MEDS: CLINDAMYCIN 600 MG/D5W RTU 600 MG/50 ML RTUPB IV SCH ×2 (01:51→09:09)
[2016-07-26] MEDS: LANSOPRAZOLE 30 MG TAB.RAP.DR PO SCH (05:53)
[2016-07-26 05:54] LABS: ABSOLUTE EOSINOPHILS # (AUTO) 0.2 10^3/uL (0.0-0.6); ABSOLUTE LYMPHOCYTES (AUTO) 1.3 10^3/uL (0.5-4.7); ABSOLUTE MONOCYTES (AUTO) 0.7 10^3/uL (0.1-1.4); ABSOLUTE NEUT (AUTO) 4.7 10^3/uL (1.7-8.2); BASOPHILS % (AUTO) 0.5 % (0-2); EOSINOPHILS % (AUTO) 3.5 % (0-6); HEMATOCRIT 26.7 % (36.0-47.0); HEMOGLOBIN 9.2 g/dL (12.0-15.5); HGB HCT DIFFERENCE 0.9; LYMPHOCYTES % (AUTO) 18.9 % (13-45); MEAN CORPUSCULAR HGB CONC 34.5 g/dL (32.0-36.0); MEAN CORPUSCULAR VOLUME 84 fl (80-97); MONOCYTES % (AUTO) 9.7 % (3-13); RED BLOOD COUNT 3.19 10^6/uL (3.72-5.28); RED CELL DISTRIBUTION WIDTH 14.7 % (11.5-14.0); SEGMENTED NEUTROPHILS % (AUTO) 67.4 % (42-78)
[2016-07-26] MEDS: NORMAL SALINE 1000 ML 1,000 ML IV PRN (05:58)
[2016-07-26 06:19] LABS: ALANINE AMINOTRANSFERASE 40 U/L (9-52); ALBUMIN 2.7 g/dL (3.5-5.0); ALKALINE PHOSPHATASE 84 U/L (38-126); ANION GAP 8 (5-19); ASPARTATE AMINO TRANSFERASE 36 U/L (14-36); BILIRUBIN,TOTAL 0.4 mg/dL (0.2-1.3); BLOOD UREA NITROGEN 14 mg/dL (7-20); CALCIUM 8.7 mg/dL (8.4-10.2); CARBON DIOXIDE 23 mmol/L (22-30); CHLORIDE 107 mmol/L (98-107); CREATININE RESULT 1.58 mg/dL (0.52-1.25); GLUCOSE 123 mg/dL (75-110); POTASSIUM 3.6 mmol/L (3.6-5.0); SODIUM 138.3 mmol/L (137-145); TOTAL PROTEIN 5.7 g/dL (6.3-8.2)
[2016-07-26] MEDS: INSULIN LISPRO 100 UNIT/ML 3 ML VIAL SUBCUT SCH ×2 (07:42→11:24)
[2016-07-26] MEDS: METOCLOPRAMIDE HCL INJ/PF 10 MG/2 ML SDV IV SCH ×2 (07:46→11:27)
[2016-07-26] MEDS: INSULIN DETEMIR 100 UNIT/ML 3 ML PEN SUBCUT SCH (09:10)
[2016-07-26] MEDS: NYSTATIN 500000 UNIT/5 ML UDCUP PO SCH ×2 (09:10→13:40)
[2016-07-26] MEDS: DOCUSATE SODIUM 100 MG CAPSULE PO SCH (09:10)
[2016-07-26] MEDS ORDERED: MEDROXYPROGESTERONE ACET INJ 150 MG/1 ML VIAL IM ONE (12:45)
--- NOTE | 2016-07-26 13:13 | PDOC DISCHARGE SUMMARY ---
General - Admit/Disc Date/PCP Admission Date/Primary Care Provider: 07/23/16 17:44 Discharge Date: 07/26/16 - Discharge Diagnosis (1) Sepsis Is this a current diagnosis for this admission?: Yes (2) Pneumonia Is this a current diagnosis for this admission?: Yes (3) Diabetic ketoacidosis Is this a current diagnosis for this admission?: Yes (4) ARF (acute renal failure) Is this a current diagnosis for this admission?: Yes (5) Dehydration with hypernatremia Is this a current diagnosis for this admission?: Yes (6) Gastroparesis Is this a current diagnosis for this admission?: Yes (7) Iron deficiency anemia due to dietary causes Is this a current diagnosis for this admission?: Yes (8) Acute blood loss anemia Is this a current diagnosis for this admission?: Yes (9) questionable competency Is this a current diagnosis for this admission?: Yes - Additional Information Resuscitation Status: Full Code Discharge Diet: Diabetic Discharge Activity: Activity As Tolerated Home Medications: Clindamycin HCl [Cleocin HCl] 600 mg PO Q8H #42 capsule 07/26/16 Ferrous Sulfate [Feosol 325 mg Tablet] 325 mg PO DAILY #30 tab 07/26/16 Insulin Detemir [Levemir Insulin 100 units/mL] 12 unit SUBCUT Q12 #1 insuln.pen 07/26/16 Metoclopramide HCl [Reglan 10 mg Tablet] 10 mg PO ACHS #120 tablet 07/26/16 Omeprazole Magnesium [Prilosec Otc] 20 mg PO DAILY #30 tablet. 07/26/16 History of Present Illness History of Present Illness: JACKIE GARCIA is a 26 year old female noncompliant type I diabetic who is well- known to this hospital service for repeated DKA admissions with cocaine intoxication. Patient currently is nonverbal although awake and I am unable to obtain any history, review of systems, or other information from this patient. She is found to be in DKA with acute renal failure with a creatinine of 3. She has been referred to the hospital service for this. Remainder of information is obtained from review of past chart and discussion with emergency department physician. Hospital Course Hospital Course: Patient was quickly transitioned on the DKA protocol from IV to standard Levemir. Patient was found to be in acute renal failure and this improved with IV hydration. However, patient possibly has suffered some permanent renal insufficiency due to her repeated episodes of DKA as well as her poorly controlled diabetes mellitus. Patient's competency has been in question lately and previous evaluation done on 02/21 reveals patient needs a medical guardian. She was also found to have a fever and leukocytosis as well as a source of pneumonia for sepsis. Patient was started on clindamycin with improvement. Patient was found to have acute blood loss anemia secondary to menstrual cycle and heparin. Heparin was stopped and patient was transfused 2 units packed red blood cells. Patient's hCG was negative. Patient did request control and she was accommodated with a shot of Depo-Provera IM. Discussed with patient receiving outpatient family planning care. Discharge planning referred for insurance issues. Today patient is stable and requesting discharge. Physical Exam Vital Signs: Temp Pulse Resp BP Pulse Ox 97.6 F 90 20 140/97 H 91 L 07/26/16 11:55 07/26/16 11:55 07/26/16 11:55 07/26/16 11:55 07/26/16 11:55 Intake & Output 07/25/16 07/26/16 07/27/16 06:59 06:59 06:59 Intake Total 4058 5725 118 Output Total 3650 6050 900 Balance 383 -555 -169 Weight 63.9 kg 63.866 kg Exam: General: Awake, alert, and oriented 3, no acute respiratory distress HEENT: AT/NC, PERRL, EOMI, oropharynx is moist, conjunctival pallor, no scleral icterus, no conjunctival injection, Neck: No JVD, trachea midline Chest: Clear to auscultation bilaterally, no wheezes rhonchi or rales CV: Regular rate and rhythm, normal S1 and S2, no murmur, rub, or gallop Abdomen: Soft, nontender to palpation, nondistended, active bowel sounds; no rebound, rigidity, or guarding Extremities: No cyanosis, clubbing; trace edema Neuro: Cranial nerves II through XII are grossly intact without focal deficits Psych: Depressed mood and affect Results Laboratory Results: 07/26/16 05:01 07/26/16 05:01 07/25/16 07/26/16 07/26/16 17:15 05:01 05:01 WBC 7.0 RBC 3.19 L Hgb 9.2 L Hct 26.7 L MCV 84 MCH 29.0 MCHC 34.5 RDW 14.7 H Plt Count 245 Seg Neutrophils % 67.4 Lymphocytes % 18.9 Monocytes % 9.7 Eosinophils % 3.5 Basophils % 0.5 Absolute Neutrophils 4.7 Absolute Lymphocytes 1.3 Absolute Monocytes 0.7 Absolute Eosinophils 0.2 Absolute Basophils 0.0 Sodium 135.8 L 138.3 Potassium 3.9 3.6 Chloride 104 107 Carbon Dioxide 20 L 23 Anion Gap 12 8 BUN 18 14 Creatinine 1.47 H 1.58 H Est GFR ( Amer) 53 L 49 L Est GFR (Non-Af Amer) 44 L 40 L Glucose 113 H 123 H Calcium 8.6 8.7 Total Bilirubin 0.5 0.4 AST 51 H 36 ALT 39 40 Alkaline Phosphatase 85 84 Total Protein 6.0 L 5.7 L Albumin 2.9 L 2.7 L 07/24/16 08:00 Ladd Catheter Urine Culture - Final NO GROWTH 2 DAYS 07/23/16 07/23/16 07/23/16 19:50 19:50 19:50 Creatine Kinase 35 Cancelled Troponin I 0.018 07/24/16 07/24/16 07/24/16 00:00 06:15 08:13 Creatine Kinase 164 H Troponin I 0.100 0.069 Impressions: Chest X-Ray 07/24/16 18:37 IMPRESSION: Interval progression in the right basilar density is noted above. Central line has been partially withdrawn with its tip now overlying the right apex presumably in the internal jugular vein Qualifiers PATEINT BEING DISCHARGED WITH ANY OF THE FOLLOWING DIAGNOSIS?: No Plan Time Spent: Greater than 30 Minutes
[2016-07-26 13:47] VITALS: BP 99/60
== END 2016-07-26 14:05 | disposition home or self-care (01) | DRG 871 ==
LOC: ER 13:32 → EH 17:44 → UNDOADMIN 18:32 → EH 18:32 → ICU 20:04 → 3W 07-24 22:54
PROVIDERS: ADMIT Family Medicine; ATTEND Family Medicine
PROC: 02HV33Z Insertion of Infusion Device into Superior Vena Cava, Percutaneous Approach (ICD-10-PCS; principal; 2016-07-23)
PROC: B548ZZA Ultrasonography of Superior Vena Cava, Guidance (ICD-10-PCS; 2016-07-23)
PROC: 30233N1 Transfusion of Nonautologous Red Blood Cells into Peripheral Vein, Percutaneous Approach (ICD-10-PCS; 2016-07-24)
DX: A41.9 Sepsis, unspecified organism (principal); E10.10 Type 1 diabetes mellitus with ketoacidosis without coma; J69.0 Pneumonitis due to inhalation of food and vomit; N17.9 Acute kidney failure, unspecified; E87.0 Hyperosmolality and hypernatremia; D62 Acute posthemorrhagic anemia; I10 Essential (primary) hypertension; K21.9 Gastro-esophageal reflux disease without esophagitis; E86.0 Dehydration; F14.10 Cocaine abuse, uncomplicated; E10.43 Type 1 diabetes mellitus with diabetic autonomic (poly)neuropathy; K31.84 Gastroparesis; D50.9 Iron deficiency anemia, unspecified; F31.9 Bipolar disorder, unspecified; R53.1 Weakness; Z91.19 Patient's noncompliance with other medical treatment and regimen; Z91.120 Patient's intentional underdosing of medication regimen due to financial hardship
CPT/HCPCS: 36415; 36430; 51702; 71010; 71020; 80048; 80053; 80307; 81001; 81025; 82140; 82550; 82553; 82803; 82962; 83605; 83735; 84484; 85025; 86850; 86900; 86901; 86920; 87040; 87086; 93005; 93010; 99291; C1751; J1050; J1630; J1644; J1815; J1940; J2405; J2765; J3480; J3490; J7030; P9016; S0119; S0164

== ENCOUNTER 2016-07-29 22:05 | Inpatient (IN) | payer SELFPAY ==
--- NOTE | 2016-07-29 22:37 | ER Document Report ---
ED General <SORIAJENNIFER - Last Filed: 07/30/16 01:16> - General Time seen by provider: 22:36 TRAVEL OUTSIDE OF THE [place] IN LAST 30 DAYS: No <PRADEEP CEDEÑO - Last Filed: 07/30/16 06:16> - General Chief Complaint: Flank Pain Stated Complaint: BLOOD SUGAR PROBLEM Notes: Patient is a 26-year-old type I diabetic that comes emergency department by EMS for chief complaint of pain in her right mid to lower back, she states she's been hurting for the past 2 days, she states it suddenly became worse tonight. She denies fever, vomiting, abdominal pain, dysuria. She states she has been taking her insulin. She states she is on Depo. [facility] gastroparesis, peptic ulcers, denies hx kidney stones. (PRADEEP CEDEÑO) - Related Data Allergies/Adverse Reactions: lisinopril [Lisinopril] Adverse Reaction (Severe, Verified 04/20/16 09:28) hypotension (5 mg dose) Past Medical History - General Information source: Patient - Social History Smoking Status: Never Smoker Frequency of alcohol use: Occasional Drug Abuse: Cocaine Lives with: Family Family History: Hyperlipidemia, Hypertension - Past Medical History Cardiac Medical History: Reports: Hx Hypertension Endocrine Medical History: Reports: Hx Diabetes Mellitus Type 1 - hx of DKA GI Medical History: Reports: Hx Gastroesophageal Reflux Disease Psychiatric Medical History: Reports: Hx Bipolar Disorder, Hx Depression Past Surgical History: Reports: Hx Bowel Surgery - Patient states for holding her stomach - Immunizations Immunizations up to date: No Hx Diphtheria, Pertussis, Tetanus Vaccination: Yes Hx Pneumococcal Vaccination: 05/09/12 <PRADEEP CEDEÑO - Last Filed: 07/30/16 06:16> Review of Systems - Review of Systems Constitutional: No symptoms reported EENT: No symptoms reported Cardiovascular: No symptoms reported Respiratory: No symptoms reported Gastrointestinal: See HPI Genitourinary: See HPI Female Genitourinary: No symptoms reported Musculoskeletal: No symptoms reported Skin: No symptoms reported Hematologic/Lymphatic: No symptoms reported Neurological/Psychological: No symptoms reported <PRADEEP CEDEÑO - Last Filed: 07/30/16 06:16> Physical Exam - Vital signs Interpretation: Normal - General General appearance: Anxious In distress: None - HEENT Head: Normocephalic, Atraumatic Eyes: Normal Conjunctiva: Normal Extraocular movements intact: Yes Eyelashes: Normal Pupils: PERRL Ears: Normal External canal: Normal Tympanic membrane: Normal Sinus: Normal Nasal: Normal Mouth/Lips: Normal Mucous membranes: Normal Pharynx: Normal Neck: Normal - Respiratory Respiratory status: No respiratory distress Chest status: Nontender Breath sounds: Normal Chest palpation: Normal - Cardiovascular Rhythm: Regular, Tachycardia Heart sounds: Normal auscultation, S1 appreciated, S2 appreciated Murmur: No - Abdominal Inspection: Normal Distension: No distension Bowel sounds: Normal Tenderness: Nontender Organomegaly: No organomegaly - Back Back: Normal, Nontender - Extremities General upper extremity: Normal inspection, Nontender, Normal color, Normal ROM , Normal temperature General lower extremity: Normal inspection, Nontender, Normal color, Normal ROM , Normal temperature, Normal weight bearing. No: Rosendo's sign - Neurological Neuro grossly intact: Yes Cognition: Normal Orientation: AAOx4 [place] Coma Scale Eye Opening: Spontaneous [place] Coma Scale Verbal: Oriented [place] Coma Scale Motor: Obeys Commands Don[place] Coma Scale Total: 15 Speech: Normal Motor strength normal: LUE, RUE, LLE, RLE Sensory: Normal - Psychological Associated symptoms: Anxious, Uncooperative - Skin Skin Temperature: Warm Skin Moisture: Dry Skin Color: Normal <PRADEEP CEDEÑO - Last Filed: 07/30/16 06:16> - Vital signs Vitals: Temp Pulse Resp BP Pulse Ox 98.4 F 110 H 18 142/86 H 99 07/29/16 22:10 07/29/16 22:10 07/29/16 22:10 07/29/16 22:10 07/29/16 22:10 Course - Laboratory Result Diagrams: 07/29/16 23:16 07/29/16 23:16 <JENNIFER SORIA - Last Filed: 07/30/16 01:16> - Laboratory Result Diagrams: 07/29/16 23:16 07/30/16 05:20 <PRADEEP CEDEÑO - Last Filed: 07/30/16 06:16> - Re-evaluation Re-evalutation: 07/30/16 01:17 Patient is DKA. Physician's assistance informed me of she with IV access. I did talk to patient and family about central line placement. She has no peripheral access whatsoever due to frequent hospital visits and multiple IVs in the past. Initially looked at the patient's internal jugulars with ultrasound. The right internal jugular is non-collapsible. Her left one is collapsible but stenotic appearing in the patient's is swollen around the bed and will not lay on her right side to allow me to stick the left internal jugular. He doesn't decide to go forward with the femoral vein. I did stick left femoral vein. Patient tolerated this well. Central line was placed. Patient will be started on treatment for DKA and admitted. Dictation of this chart was performed using voice recognition software; therefore, there may be some unintended grammatical errors. (JENNIFER SORIA) Patient initially yelling and screaming for pain medication, I explained her that with her history of gastroparesis and not knowing what is going on with her yet I would provide her with nausea medication and medicine to help her calm down but not currently pain medication. Patient is difficult to examine but is tachycardic him a however she is alert, she does answer questions appropriately, I do not appreciate any abdominal rigidity or guarding or any notable flank tenderness. Patient is afebrile. Patient is not hypotensive. CBC shows leukocytosis with elevation of neutrophils, chemistry and venous blood last show acidosis with elevation of anion gap, hyperglycemia, consistent with diabetic ketoacidosis. Bicarbonate is very low at 6, pH is low at 7.17. Potassium is sufficient at 5.1, starting insulin drip, IV fluids. Patient pulled out her IV and her hand, attempted to place an IV using ultrasound guidance and was unsuccessful. Patient has had multiple central lines with scarring of the skin of the neck. Consulted with Dr. Soria, he will place a central line to begin treatments. Patient relaxed for a couple of hours, pending admission to the hospital, will cycle chemistry, continuing to monitor glucose. Will repeat chemistry. Patient is now very agitated again, asking for pain medication, EKG checked, QT interval is not elongated, patient will be given Haldol again because this worked very well. Discussed with Dr. Mac, internal medicine, patient will be admitted to [facility]. (PRADEEP CEDEÑO) - Vital Signs Vital signs: Temp Pulse Resp BP Pulse Ox 98.4 F 108 H 20 104/57 L 100 07/30/16 02:10 07/30/16 02:10 07/30/16 05:42 07/30/16 05:42 07/30/16 05:42 - Laboratory Laboratory results interpreted by me: 07/29/16 07/29/16 07/29/16 23:16 23:16 23:16 WBC 19.3 H RBC 3.42 L Hgb 10.0 L Hct 30.6 L RDW 14.6 H Seg Neutrophils % 78.4 H Lymphocytes % 9.2 L Absolute Neutrophils 15.2 H Absolute Monocytes 2.1 H VBG pH 7.17 L* VBG pCO2 21.8 L VBG HCO3 7.8 L Sodium 136.3 L Potassium 5.1 H Chloride Carbon Dioxide 6 L* Anion Gap 32 H BUN Creatinine 1.99 H Est GFR ( Amer) 37 L Est GFR (Non-Af Amer) 31 L Glucose 488 H* POC Glucose Alkaline Phosphatase 139 H 07/30/16 07/30/16 07/30/16 03:27 04:26 05:20 WBC RBC Hgb Hct RDW Seg Neutrophils % Lymphocytes % Absolute Neutrophils Absolute Monocytes VBG pH VBG pCO2 VBG HCO3 Sodium Potassium Chloride 109 H Carbon Dioxide 10 L* Anion Gap 21 H BUN 23 H Creatinine 2.02 H Est GFR ( Amer) 37 L Est GFR (Non-Af Amer) 30 L Glucose 267 H POC Glucose 413 H* 367 H Alkaline Phosphatase Procedures - Central Line Left Femoral Consent obtained: Yes - verbal Central line pre-insertion: Sterile PPE donned, Chloraprep applied, Sterile drapes applied Central line lumen type: Triple Anesthetic type: 1% Lidocaine mL's of anesthesia: 4 Ultrasound guided: Yes Line secured with sutures: Yes Central line post-insertion: Blood return from lumens, Biopatch applied, Sutured , Sterile dressing applied Complications: No <JENNIFER SORIA - Last Filed: 07/30/16 01:16> Critical Care Note <JENNIFER SORIA - Last Filed: 07/30/16 01:16> - Critical Care Note Total time excluding time spent on procedures (mins): 40 - diabetic ketoacidosis , tachycardia <PRADEEP CEDEÑO - Last Filed: 07/30/16 06:16> - Critical Care Note Comments: Please allow 40 minutes of critical care time for evaluation and treatment of patient with diabetic ketoacidosis requiring insulin drip, IV fluids, multiple re-evaluations, consultation and admission to the hospital. (PRADEEP CEDEÑO) Discharge <JENNIFER SORIA - Last Filed: 07/30/16 01:16> - Discharge Admitting Provider: Hospitalist Unit Admitted: [facility] <PRADEEP CEDEÑO - Last Filed: 07/30/16 06:16> - Discharge Clinical Impression: Noncompliance with medication regimen, Cocaine abuse Diabetic ketoacidosis Qualifiers: Diabetes mellitus type: type 1 Diabetes mellitus complication detail: without coma Qualified Code(s): E10.10 - Type 1 diabetes mellitus with ketoacidosis without coma Condition: Stable
[2016-07-29] MEDS ORDERED: NORMAL SALINE 1000 ML 1,000 ML IV ONE (22:40)
[2016-07-29] MEDS ORDERED: HALOPERIDOL LACTATE INJ 5 MG/1 ML VIAL IM ONE (22:46)
[2016-07-29 23:26] LABS: ABSOLUTE BASOPHILS # (AUTO) 0.1 10^3/uL (0.0-0.2); ABSOLUTE EOSINOPHILS # (AUTO) 0.2 10^3/uL (0.0-0.6); ABSOLUTE LYMPHOCYTES (AUTO) 1.8 10^3/uL (0.5-4.7); ABSOLUTE MONOCYTES (AUTO) 2.1 10^3/uL (0.1-1.4); ABSOLUTE NEUT (AUTO) 15.2 10^3/uL (1.7-8.2); BASOPHILS % (AUTO) 0.6 % (0-2); EOSINOPHILS % (AUTO) 1.2 % (0-6); HEMATOCRIT 30.6 % (36.0-47.0); HGB HCT DIFFERENCE -0.6; LYMPHOCYTES % (AUTO) 9.2 % (13-45); MEAN CORPUSCULAR HEMOGLOBIN 29.3 pg (27.0-33.4); MEAN CORPUSCULAR HGB CONC 32.7 g/dL (32.0-36.0); MONOCYTES % (AUTO) 10.6 % (3-13); RED BLOOD COUNT 3.42 10^6/uL (3.72-5.28); RED CELL DISTRIBUTION WIDTH 14.6 % (11.5-14.0); SEGMENTED NEUTROPHILS % (AUTO) 78.4 % (42-78); WHITE BLOOD COUNT 19.3 10^3/uL (4.0-10.5)
[2016-07-29 23:27] LABS: VENOUS BLOOD HCO3 7.8 mmol/L (20-32); VENOUS BLOOD PCO2 21.8 mmHg (35-63)
[2016-07-29 23:32] LABS: VENOUS BLOOD PH 7.17 (7.30-7.42)
[2016-07-29 23:41] LABS: ALANINE AMINOTRANSFERASE 26 U/L (9-52); ALBUMIN 4.2 g/dL (3.5-5.0); ALKALINE PHOSPHATASE 139 U/L (38-126); ASPARTATE AMINO TRANSFERASE 21 U/L (14-36); BILIRUBIN,DIRECT 0.4 mg/dL (0.0-0.4); BILIRUBIN,TOTAL 0.7 mg/dL (0.2-1.3); BLOOD UREA NITROGEN 19 mg/dL (7-20); CALCIUM 10.1 mg/dL (8.4-10.2); CREATININE RESULT 1.99 mg/dL (0.52-1.25); TOTAL PROTEIN 8.1 g/dL (6.3-8.2)
[2016-07-29 23:45] LABS: MEAN CORPUSCULAR VOLUME 90 fl (80-97)
[2016-07-29 23:54] LABS: CHLORIDE 98 mmol/L (98-107); POTASSIUM 5.1 mmol/L (3.6-5.0); SODIUM 136.3 mmol/L (137-145)
[2016-07-29 23:57] LABS: ANION GAP 32 (5-19); CARBON DIOXIDE 6 mmol/L (22-30); GLUCOSE 488 mg/dL (75-110)
[2016-07-30] MEDS ORDERED: NORMAL SALINE 100 ML with INSULIN REGULAR, HUMAN 100 UNIT IV PRN ×4 (00:56→07:33)
[2016-07-30] MEDS ORDERED: NORMAL SALINE 1000 ML 1,000 ML IV ONE ×2 (00:56→03:29)
[2016-07-30] MEDS ORDERED: METOCLOPRAMIDE HCL INJ/PF 10 MG/2 ML SDV IV ONE (01:17)
[2016-07-30] MEDS ORDERED: MORPHINE SULFATE 10 MG/ML INJ IV ONE ×2 (01:17→14:30)
[2016-07-30] MEDS ORDERED: INSULIN REG, HUMAN 100 UNIT/ML 3 ML VIAL (PYX) ONE (02:15)
[2016-07-30 04:10] LABS: URINE BARBITURATES SCREEN NEGATIVE; URINE METHADONE SCREEN NEGATIVE; URINE OPIATES LOW NEGATIVE; URINE PHENCYCLIDINE SCREEN NEGATIVE
[2016-07-30 05:45] LABS: BLOOD UREA NITROGEN 23 mg/dL (7-20); CALCIUM 8.6 mg/dL (8.4-10.2); CREATININE RESULT 2.02 mg/dL (0.52-1.25); GLUCOSE 267 mg/dL (75-110); POTASSIUM 4.4 mmol/L (3.6-5.0)
[2016-07-30] MEDS ORDERED: HALOPERIDOL LACTATE INJ 5 MG/1 ML VIAL IM ONE (05:51)
[2016-07-30] MEDS ORDERED: NORMAL SALINE 1000 ML 2,000 ML IV PRN (05:53)
[2016-07-30 05:54] LABS: CHLORIDE 109 mmol/L (98-107); SODIUM 139.6 mmol/L (137-145)
[2016-07-30 05:56] LABS: ANION GAP 21 (5-19)
[2016-07-30 05:57] LABS: CARBON DIOXIDE 10 mmol/L (22-30)
[2016-07-30 06:41] LABS: ADD ON TESTING BLD IN LAB ACKNOWLEDGE
[2016-07-30 06:57] LABS: MAGNESIUM 1.8 mg/dL (1.6-2.3)
[2016-07-30] MEDS: NORMAL SALINE 1000 ML 1,000 ML IV SCH ×3 (07:03→08:36)
--- NOTE | 2016-07-30 07:16 | EKG REPORT ---
SEVERITY:- OTHERWISE NORMAL ECG - SINUS TACHYCARDIA : Confirmed by: Mor Chan MD 30-Jul-2016 07:16:04
[2016-07-30 07:29] LABS: CREATINE KINASE MB 0.83 ng/mL (<4.55)
[2016-07-30 07:31] LABS: TROPONIN I < 0.012 ng/mL
[2016-07-30] MEDS ORDERED: GLUCAGON,HUMAN RECOMB 1 MG INJ IM PRN (07:33)
[2016-07-30] MEDS ORDERED: DEXTROSE 50%-WATER 25 GM/50 ML DISP.SYRIN IV PRN ×2 (07:33)
[2016-07-30] MEDS ORDERED: DEXTROSE 40% GEL 15 GM TUBE PO PRN ×2 (07:33)
[2016-07-30] MEDS ORDERED: RINGERS SOLUTION,LACTATED 1,000 ML IV ONE (07:40)
[2016-07-30] MEDS ORDERED: ACETAMINOPHEN 650 MG SUPP.RECT PR PRN (07:43)
[2016-07-30] MEDS ORDERED: NORMAL SALINE 1000 ML 1,000 ML IV PRN (07:43)
[2016-07-30] MEDS ORDERED: PHARMACY COMMUNICATION ORDER MC SCH (08:15)
[2016-07-30] MEDS ORDERED: DEXTROSE 5%-NORMAL SALINE 1,000 ML IV PRN (08:24)
--- NOTE | 2016-07-30 08:29 | PDOC H&P ---
History of Present Illness Admission Date/PCP: 07/30/16 06:15 Patient complains of: back pain History of Present Illness: JACKIE GARCIA is a 26 year old -[place] female, well known to the hospitalist service for multiple admissions for combination of diabetic ketoacidosis, typically due to noncompliance, along with cocaine abuse. Patient has been discussed with emergency room nurse practitioner who evaluated the patient. Patient is is sedated and altered from Haldol given due to extreme agitation on her part and is able to provide no history whatsoever in terms of acute or chronic events, review of systems, personal habits, family history, etc. No friends or family are present. Old inpatient records are reviewed. According to emergency room nurse practitioner notes, she presented with complaints of 2 day history of pain in her mid to lower back. Suddenly became worse the night of admission. denied fever abdominal pain or dysuria. States she's been taking her insulin. Has had a previous Depo-Provera shot. Past medical history reportedly positive for gastroparesis, and peptic ulcers. Denies history of kidney stones. No further information available this point in time. . Hospitalized on our service the to the of this month with final diagnoses including sepsis due to pneumonia, along with diabetic ketoacidosis, and acute renal failure. History and physical and discharge summary have been reviewed. Laboratory results are listed in [employer] and are reviewed. X-ray summary results are listed below, with full report(s) reviewed. . EKG reviewed. Social history/personal habits: Per old records, single. No children. Unemployed. Rare alcohol use. Occasional tobacco use. Multiple drug screens positive for cocaine. Allergies/adverse reactions are listed in [employer] and are reviewed. Home medications Home medications initially autopopulated into [employer] may not accurately reflect patient's true medications, dosages, and/or frequencies. REVIEW OF SYSTEMS: See history and present illness.No further information available this point in time. PHYSICAL EXAMINATION: 63.9 kg. Height is not recorded on the chart. Blood pressure 110/60. Pulse 113 and regular. 100 percent saturation on room air. Respirations are 24 and unlabored. Temperature 98.4. Female emergency room nurse Claribel is present. Chronically ill-appearing otherwise well-developed -[place] female who appears a bit older than her stated age. Drowsy. Does open eyes upon request. Complains of back pain. Maintaining airway well. Falls back asleep very quickly. Skin is warm and dry. No grossly obvious evidence of rash in areas of skin examined. No subcutaneous nodules palpated. ENT: Hearing grossly normal to normal conversation. Does not protrude tongue on request. Eyes: No scleral icterus. Pupils equal and reactive to light at 4 mm. [place] conjunctivae. No [place] eyes. Neck is supple and nontender to gentle active range of motion and palpation. Midline trachea. No palpable thyroid nodule mass enlargement or tenderness. Lymphatic: No palpable cervical or clavicular nodes. Neck and lymphatic exams limited by patient body habitus. Psychiatric: Not able to adequately evaluate due to her current status. Lungs: Auscultation reveals clear and equal breath sounds bilaterally. No use of accessory respiratory muscles. Cardiovascular: Heart regular rate and rhythm, without gallop murmur or rub. No carotid or abdominal aortic bruits. No ankle or pedal edema. palpable dorsalis pedis pulses. Abdomen: soft, , mildly distended with positive bowel sounds. Very mild diffuse tenderness to palpation, without evidence of guarding or peritoneal signs. Unable to adequately evaluate abdomen for masses or organomegaly due to distention and discomfort. Extremities: Feet are warm and dry. No calf tenderness to compression. No grossly obvious visual evidence of calf swelling. Gentle manipulation of lower extremities fails to reveal any obvious evidence of injury or instability to knees hips or ankles. Neurologic: Moves upper extremities grossly normally. Patellar reflexes absent. Absent Babinski. Light touch can't be determined due to her current status.. Dorsiflexion and plantarflexion of feet 5 / 5 and symmetric. Past Medical History Cardiac Medical History: Reports: Hypertension Endocrine Medical History: Reports: Diabetes Mellitus Type 1 - hx of DKA GI Medical History: Reports: Gastroesophageal Reflux Disease Psychiatric Medical History: Reports: Bipolar Disorder, Depression Hematology: Reports: Anemia - Of chronic disease Social History Information Source: Emergency Med Personnel, [facility] Records Lives with: Family Smoking Status: Never Smoker Frequency of Alcohol Use: Occasional Hx Recreational Drug Use: Yes Drugs: Cocaine, Marijuana Hx Prescription Drug Abuse: Yes - Advance Directive Resuscitation Status: Full Code Surrogate healthcare decision maker:: Uncertain at this point in time. Family History Family History: Hyperlipidemia, Hypertension Parental Family History Reviewed: No - information not obtainable at this point in time. Children Family History Reviewed: NA Sibling(s) Family History Reviewed.: No - information not obtainable at this point in time. Medication/Allergy Home Medications: No Home Medications 07/30/16 Allergies/Adverse Reactions: lisinopril [Lisinopril] Adverse Reaction (Severe, Verified 04/20/16 09:28) hypotension (5 mg dose) Physical Exam Vital Signs: Temp Pulse Resp BP Pulse Ox 98.4 F 108 H 17 118/67 100 07/30/16 02:10 07/30/16 02:10 07/30/16 07:01 07/30/16 07:01 07/30/16 07:01 Results Laboratory Results: 07/30/16 06:50 Creatine Kinase 322 H Impressions: Chest X-Ray 07/30/16 00:00 IMPRESSION: Improving pneumonia. Assessment & Plan - Diagnosis (1) Abnormal chest xray Is this a current diagnosis for this admission?: YesPlan: Per radiologist, improved overall appearance concerning her previously noted pneumonia. However, given her overall clinical picture, both acutely and chronically, will start patient on Rocephin and intravenous Zithromax. (2) Renal failure Is this a current diagnosis for this admission?: YesPlan: Little change in terms of her EGFR from review of recent prior labs. Serial chemistry with her DKA protocol. (3) Cocaine abuse Is this a current diagnosis for this admission?: Yes (4) Diabetic ketoacidosis Qualifiers: Diabetes mellitus type: type 1 Diabetes mellitus complication detail: without coma Qualified Code(s): E10.10 - Type 1 diabetes mellitus with ketoacidosis without coma Is this a current diagnosis for this admission?: YesPlan: Patient will be admitted under DKA protocol. Insulin drip. Vigorous fluid hydration. Strict intake and output. Q 4 hours chemistry 7. Hourly Accu- Cheks. Addition of dextrose to intravenous fluid once serum glucose and/or Accu- Cheks 275 or less. IV Pepcid for gastritis prophylaxis. Patient is full code. Knee high SCDs for DVT prophylaxis, along with subcutaneous heparin. Time spent in evaluation and management of patient: 64 minutes (5) Noncompliance with medication regimen Is this a current diagnosis for this admission?: Yes (6) Cocaine abuse Is this a current diagnosis for this admission?: Yes - Inpatient Certification Based on my medical assessment, after consideration of the patient's comorbidities, presenting symptoms, or acuity I expect that the services needed warrant INPATIENT care.: Yes I certify that my determination is in accordance with my understanding of Medicare's requirements for reasonable and necessary INPATIENT services [42 CFR 412.3e].: Yes Medical Necessity: Significant Comorbidiites Make Outpatient Treatment Too Risky , Need Close Monitoring Due to Risk of Patient Decompensation, Need For IV Fluids, Need For Continuous Telemetry Monitoring, Need for IV Antibiotics, Risk of Complication if Not Cared For in Hospital, Risk of Diagnosis Which Will Require Inpatient Eval/Care/Monitoring Post Hospital Care: D/C or Transfer Summary
[2016-07-30] MEDS ORDERED: CEFTRIAXONE 1 GM/D5W RTU 50 ML IV SCH (10:00)
[2016-07-30] MEDS ORDERED: HEPARIN SOD (PORCINE) 5,000 UNIT/ML 1 ML SYRINGE SUBCUT SCH (10:00)
[2016-07-30] MEDS ORDERED: FAMOTIDINE INJ/PF 20 MG/2 ML SDV IV SCH (10:00)
[2016-07-30] MEDS ORDERED: AZITHROMYCIN 500 MG in DEXTROSE 5%-WATER 250 ML IV SCH (12:00)
[2016-07-30 12:03] LABS: ANION GAP 8 (5-19); BLOOD UREA NITROGEN 19 mg/dL (7-20); CALCIUM 7.9 mg/dL (8.4-10.2); CARBON DIOXIDE 18 mmol/L (22-30); CHLORIDE 114 mmol/L (98-107); CREATININE RESULT 1.64 mg/dL (0.52-1.25); GLUCOSE 161 mg/dL (75-110); POTASSIUM 4.2 mmol/L (3.6-5.0); SODIUM 139.5 mmol/L (137-145)
[2016-07-30] MEDS ORDERED: POTASSI CL 20 MEQ/D5NS 1L 1,000 ML IV PRN (13:00)
[2016-07-30] MEDS ORDERED: INSULIN DETEMIR 100 UNIT/ML 3 ML PEN SUBCUT ONE (14:00)
[2016-07-30] MEDS ORDERED: TRAMADOL HCL 50 MG TABLET PO PRN (15:43)
[2016-07-30 16:35] VITALS: BP 113/66
--- NOTE | 2016-07-30 16:38 | PDOC PROGRESS REPORT ---
Subjective Progress Note for:: 07/30/16 Subjective:: The patient was seen earlier today on rounds. The patient was asleep when I entered the room. Awaken the patient and she stated "my back hurts". I asked the patient had been bothering her during the day and the patient yelled "Yes it has hurt all day". The patient then asked for a meal tray stating that she was "starving". The patient has been unable to produce any urine specimen. The patient denies any other symptoms. The patient denies any nausea, vomiting, diarrhea, shortness of breath, dizziness, chest pain, heart palpitations, fevers , or chills. The patient has remained afebrile. Blood pressures have been in a good range. Review of systems: The rest of the review of systems is negative. Physical Exam Vital Signs: Temp Pulse Resp BP Pulse Ox 98.4 F 108 H 17 118/67 100 07/30/16 02:10 07/30/16 02:10 07/30/16 07:01 07/30/16 07:01 07/30/16 07:01 General appearance: PRESENT: no acute distress, disheveled, well-developed, well -nourished Head exam: PRESENT: atraumatic, normocephalic Eye exam: PRESENT: conjunctiva pink, EOMI, PERRLA. ABSENT: scleral icterus Ear exam: PRESENT: normal external ear exam Mouth exam: PRESENT: moist, tongue midline Neck exam: ABSENT: carotid bruit, JVD, lymphadenopathy, thyromegaly Respiratory exam: PRESENT: clear to auscultation [place]. ABSENT: rales, rhonchi, wheezes Cardiovascular exam: PRESENT: RRR. ABSENT: diastolic murmur, rubs, systolic murmur Pulses: PRESENT: normal dorsalis pedis pul Vascular exam: PRESENT: normal capillary refill GI/Abdominal exam: PRESENT: normal bowel sounds, soft. ABSENT: distended, guarding, mass, organolmegaly, rebound, tenderness Rectal exam: PRESENT: deferred Extremities exam: PRESENT: full ROM. ABSENT: calf tenderness, clubbing, pedal edema Neurological exam: PRESENT: alert, awake, oriented to person, oriented to place , oriented to time, oriented to situation, CN II-XII grossly intact. ABSENT: motor sensory deficit Psychiatric exam: PRESENT: agitated, unusual affect. ABSENT: homicidal ideation , suicidal ideation Skin exam: PRESENT: dry, intact, warm. ABSENT: cyanosis, rash Results Laboratory Results: 07/30/16 11:20 07/30/16 11:20 Sodium 139.5 Potassium 4.2 Chloride 114 H Carbon Dioxide 18 L Anion Gap 8 BUN 19 Creatinine 1.64 H Est GFR ( Amer) 47 L Est GFR (Non-Af Amer) 38 L Glucose 161 H Calcium 7.9 L Impressions: Chest X-Ray 07/30/16 00:00 IMPRESSION: Improving pneumonia. Assessment & Plan - Diagnosis (1) Diabetic ketoacidosis Qualifiers: Diabetes mellitus type: type 1 Diabetes mellitus complication detail: without coma Qualified Code(s): E10.10 - Type 1 diabetes mellitus with ketoacidosis without coma Is this a current diagnosis for this admission?: YesPlan: Patient's blood glucose is a good range. Gap is closed. Will start basal dose insulin. DC insulin drip. Will transition fluids. Advance to diabetic diet. (2) ARF (acute renal failure) Qualifiers: Acute renal failure type: unspecified Qualified Code(s): N17.9 - Acute kidney failure, unspecified Is this a current diagnosis for this admission?: YesPlan: At this point the patient most likely has some underlying chronic kidney disease. Looking at her creatinine strands over the past couple years and is slowly trending upwards and a new baseline appears to be a 1.2 range. (3) Cocaine abuse Is this a current diagnosis for this admission?: Yes (4) Noncompliance with medication regimen Is this a current diagnosis for this admission?: Yes (7) Polysubstance abuse Is this a current diagnosis for this admission?: Yes (8) Pneumonia Qualifiers: Pneumonia type: due to unspecified organism Laterality: right Lung location: lower lobe of lung Qualified Code(s): J18.1 - Lobar pneumonia, unspecified organism Is this a current diagnosis for this admission?: YesPlan: Continue antibiotic coverage. (9) Back pain Is this a current diagnosis for this admission?: YesPlan: Will give a one-time dose of morphine. The patient has been laying on stretcher in the emergency department. Will add when necessary Ultram. - Time Time Spent with patient: 35 or more minutes Anticipated discharge: Home Within: within 48 hours Disposition: The patient is a full code. Pending patient's symptomatology and diagnostic findings will reevaluate in the a.m.
[2016-07-30 17:29] LABS: ANION GAP 14 (5-19); BLOOD UREA NITROGEN 19 mg/dL (7-20); CALCIUM 7.8 mg/dL (8.4-10.2); CARBON DIOXIDE 13 mmol/L (22-30); CHLORIDE 108 mmol/L (98-107); CREATININE RESULT 1.58 mg/dL (0.52-1.25); GLUCOSE 285 mg/dL (75-110); POTASSIUM 4.8 mmol/L (3.6-5.0); SODIUM 135.2 mmol/L (137-145)
[2016-07-30] MEDS ORDERED: INSULIN DETEMIR 100 UNIT/ML 3 ML PEN SUBCUT SCH (22:00)
--- NOTE | 2016-07-31 09:43 | DISCHARGE SUMMARY E ---
Discharge Summary NAME: JACKIE GARCIA : 1990 AGE: 26Y ADMITTED: 07/30/2016 DISCHARGED: 07/30/2016 Patient left against medical advice. CODE STATUS AT THE TIME THE PATIENT LEFT AGAINST MEDICAL ADVICE: FULL CODE. PRIMARY CARE PROVIDER: Not established. WORKING DIAGNOSES: 1. Diabetic ketoacidosis. 2. Poorly controlled diabetes mellitus type 1. 3. Chronic kidney disease stage III. 4. Acute renal failure. 5. Cocaine abuse. 6. Polysubstance abuse. 7. Profound noncompliance. 8. Left lower lobe pneumonia. 9. Back pain. HOME MEDICATIONS: Levemir 12 units q.12 hours. HISTORY OF PRESENT ILLNESS: The patient is a 26-year-old -[place] female with a past medical history of diabetes mellitus type 1 with multiple admissions for DKA that is well known to the hospitalist service as well as the emergency department and EMS services. The patient presented to the emergency department with a chief complaint of back pain. According to ED records, the patient was brought into the emergency department due to a 2-day history of pain in her mid to lower back which suddenly became worse the night of admission. The patient denied at that time any abdominal pain or dysuria and stated compliance with her insulin. The patient also noted that she had taken Depo-Provera. However, the patient became angry and combative and was given Haldol. At the time of admission, the patient was obtunded. The patient was found to be in DKA with a gap of 32, a glucose of 488, CO2 of 6, and the patient was referred to the hospitalist for admission and management. HOSPITAL COURSE: The patient was admitted to [facility]. The patient was placed on insulin drip and pain was managed with morphine. The patient's gap closed and the patient was transitioned over to basal insulin. The patient's CO2 improved to 18 and the patient's blood glucose was under 250. The patient was unable to provide the urine specimen as ordered and refused catheterization, therefore, were unable to obtain to urine course. The patient was covered with IV antibiotics for pneumonia; however, once the patient was alert and oriented, the patient demanded to leave against medical advice. The patient was in the company of family and the patient is aware of the risk associated with this including as the patient typically leaves against medical advice during her hospitalizations. DIAGNOSTICS: Lab values are as follows: Hematology obtained on 07/29/2016: WBCs are *------*, hemoglobin is 10.0, hematocrit is 30.6, platelet count is 455,000. ABG obtained on 07/29/2016: The pH is 7.17, pCO2 is 21.8, bicarb is 7.8. Chemistry obtained on 07/30/2016: Sodium is 135, potassium 4.8, chloride is 108, carbon dioxide 18, BUN 19, creatinine 0.58, glucose 285, calcium is 7.8, magnesium is 1.8, bilirubin 0.7, AST 21, ALT is 26, alk phos 39, total protein 8.1, albumin 4.2, CK 322, CKMB is 0.83, troponin is 0.012. Urine obtained on 07/30/2016: HCG level is negative. Toxicology screen is positive for cocaine. Blood cultures obtained on 07/30/2016 are pending. Chest x-ray obtained on 07/30/2016 reveals improving pneumonia. EKG obtained on 07/30/2016 reveals sinus tachycardia. PHYSICAL EXAMINATION: Please see note from earlier in the day. GENERAL: The patient is alert and oriented to person, place, time, and situation. She is verbal, conversational, ambulatory, and does not appear to be in any acute distress. VITAL SIGNS: Temperature 97.9, pulse 104, respirations 20, blood pressure 113/66, oxygen saturation is 100% on room air. The patient is strongly urged to followup with a primary care provider. Time spent on this AMA summary and interventions is 15 minutes. DICTATING PHYSICIAN: DONTE HUTSON NP [id number] PHY#: [id number] ID: [id number] JOB#: [id number] ACCT: [id number] cc:MARK JOYCE M.D., MICHAEL NP >
== END 2016-07-30 18:07 | disposition left against medical advice (07) | DRG 637 ==
LOC: ER 22:05 → UNDOADMIN 07-30 06:15 → EH 07-30 06:15 → 3W 07-30 15:25
PROVIDERS: ADMIT Family Medicine; ATTEND Family Medicine
PROC: 06HN33Z Insertion of Infusion Device into Left Femoral Vein, Percutaneous Approach (ICD-10-PCS; principal; 2016-07-30)
DX: E10.10 Type 1 diabetes mellitus with ketoacidosis without coma (principal); J18.1 Lobar pneumonia, unspecified organism; N17.9 Acute kidney failure, unspecified; E10.22 Type 1 diabetes mellitus with diabetic chronic kidney disease; I12.9 Hypertensive chronic kidney disease with stage 1 through stage 4 chronic kidney disease, or unspecified chronic kidney disease; N18.3 Chronic kidney disease, stage 3 (moderate); F14.10 Cocaine abuse, uncomplicated; F19.10 Other psychoactive substance abuse, uncomplicated; M54.9 Dorsalgia, unspecified; R00.0 Tachycardia, unspecified; K21.9 Gastro-esophageal reflux disease without esophagitis; F31.9 Bipolar disorder, unspecified; E10.43 Type 1 diabetes mellitus with diabetic autonomic (poly)neuropathy; D63.1 Anemia in chronic kidney disease; K31.84 Gastroparesis; Z91.14 Patient's other noncompliance with medication regimen; Z87.11 Personal history of peptic ulcer disease; Z88.8 Allergy status to other drugs, medicaments and biological substances; Z53.29 Procedure and treatment not carried out because of patient's decision for other reasons; Z79.4 Long term (current) use of insulin; Z82.49 Family history of ischemic heart disease and other diseases of the circulatory system
CPT/HCPCS: 36415; 71010; 80048; 80053; 80307; 81025; 82550; 82553; 82803; 82962; 83735; 84484; 85025; 87040; 93005; 93010; 96361; 96372; 96374; 96375; 99291; C1751; J0696; J1630; J1644; J1815; J2270; J2765; J7030; S0028